=== PATIENT | male | born 1995 | race Caucasian/White ===

== ENCOUNTER 2018-07-18 09:52 | Inpatient (IN) ==
[2018-07-18] MEDS: Morphine Inj 4 MG/ML Vial IV.PUSH PRN (17:15)
--- NOTE | 2018-07-18 17:18 | P.HP ---
History of Present Illness Primary Care Physician: UNKNOWN Chief Complaint: abdominal pain History of Present Illness: patient is a 23 y/o male with no significant past medical history-other than recent admission to the hospital because of mononucleosis and tonsillitis- presented to ER with abdominal pain and GI bleed. his mother said that he was admitted to the hospital twice within the past three weeks. they were told that he might've had autoimmune hepatitis and was scheduled for liver biopsy. he was also found to have gallstone for which he was seen by a surgeon and was supposed to have cholecystectomy. his mother said that he wasn't feeling fine when he left the hospital. he's been having on and off abdominal pain for the past two-three weeks however it started to get worse yesterday.he started to have bloody emesis last night. there's no report of fever or chills at home. he denies any GI bleed in the past and never had endoscopy. Inpatient Certification: I certify that the inpatient services were ordered in accordance with Medicare regulations governing the order. This includes certification that hospital inpatient services are reasonable and necessary and in the case of services not specified as inpatient-only under 42 CFR 419.22(n), that they are appropriately provided as inpatient services in accordance to with the 2-midnight benchmark under 43 CFR 412.3(e) Estimated Total Length of Stay (Days): 2 Plans for Post Hospital Care: Home Review of Systems All other systems reviewed negative except as stated in HPI [facility] - History History Provided By: Patient, Family Member - Medical History Medical History: Medical History (Last Reviewed 07/18/18 @ 17:14 by Kwasi Arthur MD) Cytomegaloviral mononucleosis with other complication Gallstone Viral hepatitis - Surgical History Surgical History: Surgical History (Last Reviewed 07/18/18 @ 17:14 by Kwasi Arthur MD) No history of previous surgery - Family History Family History: Family History (Last Updated 07/18/18 @ 17:14 by Kwasi Arthur MD) Other No pertinent family history - Tobacco History Smoking Status: Never smoker - Alcohol History How Often Do You Have a Drink Containing Alcohol: Never - Substance Use History Substance History: No History of Abuse - Immunization History Tetanus Immunization Year if Known: 2014 Medications and Allergies Active Medications: Active Medications Diphenhydramine HCl (Benadryl Inj) 25 mg IV.PUSH Q6H PRN PRN Reason: ALLERGIC REACTION Sodium Chloride (Ns Inj) 1,000 mls @ 125 mls/hr IV.CONT .Q8H ADELINA Piperacillin/Tazobactam/Dextrose (Zosyn 3.375 Gm Premix) 50 mls @ 100 mls/hr IV.SIG Q6H ADELINA Morphine Sulfate (Morphine Inj) 2 mg IV.PUSH Q4H PRN PRN Reason: ABDOMINAL PAIN Ondansetron HCl (Zofran Inj) 4 mg IV.PUSH Q8H PRN PRN Reason: nausea Pantoprazole Sodium (Protonix Inj) 40 mg IV.PUSH Q24H ADELINA Allergies Allergy/AdvReac Type Severity Reaction Status Date / Time hydromorphone [From Dilaudid] Allergy Tachycardia Verified 07/18/18 14:53 Home Medications Medication Instructions Recorded Confirmed Type No Known Home Medications 07/18/18 07/18/18 History Exam Vital signs: Vital Signs 07/18/18 16:59 Pulse Oximetry 98 - Constitutional moderate distress - Routine HEENT Exam Eye: Present: PERRL - Routine Neck Exam Present: full ROM - Routine Respiratory Exam Present: CTA bilaterally - Routine Cardiovascular Exam Present: RRR - Routine Abdominal Exam Present: soft, tenderness (diffuse tenderness) - Routine Extremities Exam Comments: no pedal edema. - Routine Neurological Exam Present: alert, oriented X3 Caprini VTE Risk Assessment Caprini VTE Risk Assessment: No/Low Risk (score <= 1) VTE Pharmacological Exception Reason: Active bleeding Caprini Risk Assessment Model: Point Value = 1 Point Value = 2 Point Value = 3 Point Value = 5 Age 41-60 Minor surgery BMI > 25 kg/m2 Swollen legs Varicose veins or History of unexplained or recurrent spontaneous Oral contraceptives or hormone replacement Sepsis (< 1 month) Serious lung disease, including pneumonia (< 1 month) Abnormal pulmonary function Acute myocardial infarction Congestive heart failure (< 1 month) History of inflammatory bowel disease Medical patient at bed rest Age 61-74 Arthroscopic surgery Major open surgery (> 45 min) Laparoscopic surgery (> 45 min) Malignancy Confined to bed (> 72 hours) Immobilizing plaster cast Central venous access Age >= 75 History of VTE Family history of VTE Factor V Leiden Prothrombin [id number] Lupus anticoagulant Anticardiolipin antibodies Elevated serum homocysteine Heparin-induced thrombocytopenia Other congenital or acquired thrombophilia Stroke (< 1 month) Elective arthroplasty Hip, pelvis, or leg fracture Acute spinal cord injury (< 1 month) Prophylaxis Regimen: Total Risk Factor Score Risk Level Prophylaxis Regimen 0-1 Low Early ambulation 2 Moderate Order ONE of the following: *Sequential Compression Device (SCD) *Heparin 5000 units SQ BID 3-4 Higher Order ONE of the following medications: *Heparin 5000 units SQ TID *Enoxaparin/Lovenox 40 mg SQ daily (WT < 150 kg, CrCl > 30 mL/min) *Enoxaparin/Lovenox 30 mg SQ daily (WT < 150 kg, CrCl > 10-29 mL/min) *Enoxaparin/Lovenox 30 mg SQ BID (WT < 150 kg, CrCl > 30 mL/min) AND/OR *Sequential Compression Device (SCD) 5 or more Highest Order ONE of the following medications: *Heparin 5000 units SQ TID (Preferred with Epidurals) *Enoxaparin/Lovenox 40 mg SQ daily (WT < 150 kg, CrCl > 30 mL/min) *Enoxaparin/Lovenox 30 mg SQ daily (WT < 150 kg, CrCl > 10-29 mL/min) *Enoxaparin/Lovenox 30 mg SQ BID (WT < 150 kg, CrCl > 30 mL/min) AND *Sequential Compression Device (SCD) Assessment and Plan - Plan A/P - GI bleed keep NPO for now and start on IV fluid and IV Protonix- will monitor H/H and consult GI -abdominal pain with cholelithiasis/ possible cholecystitis continue with IV antibiotics and pain control- consult general surgery -elevated LFT's- will obtain the medical record from recent hospitalization- GI consulted as noted above. Discussed Condition With: ER physician, the patient and his family- RN.
--- NOTE | 2018-07-18 18:05 | P.CONGI ---
History of Present Illness Consult date: 07/18/18 Consult reason: GI bleed Chief complaint: Acute Abdomen; rule out cholecystitis History of Present Illness: This is a 23-year-old male who was admitted to the hospital here from [facility] with acute symptoms of hematemesis, nausea vomiting, and diffuse abdominal pain. Onset of symptoms initiated June 30 but have continued to worsen over the last few days. Patient is guarding his abdomen and appears to be tender all over but notes most of his sharp pain and cramping is in his lower abdomen. Patient has multiple family members here; patient is also given information and according to patient he has a 1.6 cm gallstone and the plan was to have cholecystectomy done on 07/20/2018 at the [facility]. Patient states he was also seen per Dr. Dillard gastroenterology at the [facility] but has had no EGD or colonoscopy in the past. Patient also notes some melena stools approximately 2 days ago but is now passing dark maroon blood greater than 5 times today. Patient was also treated for recent mono in June 2018. Positive family history of colon cancer grandmother in her 40s. It is also noted that grandmother had autoimmune hepatitis and cirrhosis. According to family plan was for liver biopsy during his cholecystectomy. Gastroenterology has been consulted to assist in the symptom management and the patient care of this patient. Labs are now available which show current hemoglobin 12.1, WBC count 20.6, platelet count 305, PT/INR 1, bilirubin 0.5, AST 61, ALT 181. <Olivia Mendenhall - Last Filed: 07/18/18 18:05> Review of Systems All other systems reviewed negative except as stated in HPI <Olivia Mendenhall - Last Filed: 07/18/18 18:05> PMFSH - History History Provided By: Patient, Family Member - Medical History Medical History: Medical History (Last Reviewed 07/18/18 @ 17:14 by Kwasi Arthur MD) Cytomegaloviral mononucleosis with other complication Gallstone Viral hepatitis - Surgical History Surgical History: Surgical History (Last Reviewed 07/18/18 @ 17:14 by Kwasi Arthur MD) No history of previous surgery - Family History Family History: Family History (Last Updated 07/18/18 @ 17:14 by Kwasi Arthur MD) Other No pertinent family history - Tobacco History Smoking Status: Never smoker - Alcohol History How Often Do You Have a Drink Containing Alcohol: Never - Substance Use History Substance History: No History of Abuse - Immunization History Tetanus Immunization Year if Known: 2014 <Olivia Mendenhall - Last Filed: 07/18/18 18:05> - Medical History Medical History: Medical History (Last Reviewed 07/18/18 @ 17:14 by Kwasi Arthur MD) Cytomegaloviral mononucleosis with other complication Gallstone Viral hepatitis - Surgical History Surgical History: Surgical History (Last Reviewed 07/18/18 @ 17:14 by Kwasi Arthur MD) No history of previous surgery - Family History Family History: Family History (Last Updated 07/18/18 @ 17:14 by Kwasi Arthur MD) Other No pertinent family history <Austin Sales - Last Filed: 07/18/18 20:38> Medications and Allergies Active Medications: Active Medications Diphenhydramine HCl (Benadryl Inj) 25 mg IV.PUSH Q6H PRN PRN Reason: ALLERGIC REACTION Sodium Chloride (Ns Inj) 1,000 mls @ 125 mls/hr IV.CONT .Q8H ADELINA Piperacillin/Tazobactam/Dextrose (Zosyn 3.375 Gm Premix) 50 mls @ 100 mls/hr IV.SIG Q6H ADELINA Morphine Sulfate (Morphine Inj) 2 mg IV.PUSH Q4H PRN PRN Reason: ABDOMINAL PAIN Ondansetron HCl (Zofran Inj) 4 mg IV.PUSH Q8H PRN PRN Reason: nausea Pantoprazole Sodium (Protonix Inj) 40 mg IV.PUSH Q24H ADELINA <Olivia Mendenhall - Last Filed: 07/18/18 18:05> Active Medications: Active Medications Diphenhydramine HCl (Benadryl Inj) 25 mg IV.PUSH Q6H PRN PRN Reason: ALLERGIC REACTION Sodium Chloride (Ns Inj) 1,000 mls @ 125 mls/hr IV.CONT .Q8H ADELINA Last Admin: 07/18/18 18:06 Dose: 125 mls/hr Piperacillin/Tazobactam/Dextrose (Zosyn 3.375 Gm Premix) 50 mls @ 100 mls/hr IV.SIG Q6H ADELINA Morphine Sulfate (Morphine Inj) 2 mg IV.PUSH Q4H PRN PRN Reason: ABDOMINAL PAIN Last Admin: 07/18/18 17:15 Dose: 2 mg Ondansetron HCl (Zofran Inj) 4 mg IV.PUSH Q8H PRN PRN Reason: nausea Pantoprazole Sodium (Protonix Inj) 40 mg IV.PUSH Q24H [facility] Last Admin: 07/18/18 18:06 Dose: 40 mg <Austin Sales E - Last Filed: 07/18/18 20:38> Allergies Allergy/AdvReac Type Severity Reaction Status Date / Time hydromorphone [From Dilaudid] Allergy Tachycardia Verified 07/18/18 14:53 Home Medications Medication Instructions Recorded Confirmed Type No Known Home Medications 07/18/18 07/18/18 History Exam Vital signs: Vital Signs 07/18/18 16:59 Pulse Oximetry 98 - Constitutional moderate distress, average body habitus - Routine HEENT Exam Head: Present: normocephalic, atraumatic ENT: Present: mucous membranes moist - Routine Neck Exam Present: supple - Routine Respiratory Exam Present: accessory muscle use (No obvious shortness of breath oxygen per nasal cannula) - Routine Cardiovascular Exam Present: S1, S2 (taut, ) - Routine Abdominal Exam Present: tenderness (Generalized but more so in the lower abdomen with cramping and sharp pains off and on), distended, guarding (Mild) - Routine Skin Exam Present: intact - Routine Neurological Exam Present: alert (Drowsy from pain meds but is answering simple questions) <Olivia Mendenhall - Last Filed: 07/18/18 18:05> Vital signs: Vital Signs 07/18/18 16:59 Pulse Oximetry 98 <Austin Sales E - Last Filed: 07/18/18 20:38> Results - Labs CBC & Chem 7: 07/18/18 19:41 Labs: Laboratory Results - last 24 hr 07/18/18 19:41 Hgb 10.9 L Hct 33.3 L <Austin Sales E - Last Filed: 07/18/18 20:38> Assessment and Plan - Plan Acute hematemesis, symptoms of nausea vomiting and diffuse abdominal pain with special attention to the lower abdomen area Melena stools alternating with Maroon colored dark stools History of grandmother with colon cancer as well as autoimmune hepatitis and cirrhosis Transaminitis acute symptoms of hematemesis, nausea vomiting, and diffuse abdominal pain. Onset of symptoms initiated June 30 but have continued to worsen over the last 3-4 days. Patient is guarding his abdomen and appears to be tender all over but notes most of his sharp pain and cramping is in his lower abdomen. Patient has multiple family members here; patient is also given information and according to patient he has a 1.6 cm gallstone and the plan was to have cholecystectomy done on 07/20/2018 at the [facility]. Patient states he was also seen per Dr. Dillard gastroenterology at the [facility] but has had no EGD or colonoscopy in the past. Patient also notes some melena stools approximately 2 days ago but is now passing dark maroon blood greater than 5 times today. Patient was also treated for recent mono in June 2018. Positive family history of colon cancer grandmother in her 40s. It is also noted that grandmother had autoimmune hepatitis and cirrhosis. According to family plan was for liver biopsy during his cholecystectomy. Gastroenterology has been consulted to assist in the symptom management and the patient care of this patient. Labs are now available which show current hemoglobin 12.1, WBC count 20.6, platelet count 305, PT/INR 1, bilirubin 0.5, AST 61, ALT 181. Dependent on patient's stability he will need possible EGD and colonoscopy. Plan Diet n.p.o. for now Aggressive IV fluids Monitor labs and transfuse if needed Monitor intake and output as well as hematemesis and bloody stools Maintain n.p.o. at midnight, consider EGD initially for his hematemesis PPI Pain management per attending Jero as needed Further recommendations to follow, supportive care Patient was seen per myself and Dr. Sales, note was written on his behalf <Olivia Mendenhall - Last Filed: 07/18/18 18:05> - Plan Patient seen and examined Agree with above Continue with current supportive care Monitor labs EGD tomorrow <Austin Sales - Last Filed: 07/18/18 20:38>
[2018-07-18] MEDS: Sod Chloride 0.9% Inj 1,000 ML IV.CONT SCH ×2 (18:06→22:59)
[2018-07-18] MEDS: Pantoprazole Inj 40 MG Vial IV.PUSH SCH (18:06)
[2018-07-18 19:53] LABS: Hematocrit 33.3 % (39.0-51.0); Hemoglobin 10.9 gm/dL (13.0-17.0)
[2018-07-18 21:51] LABS: Baso # (Auto) 0.1 th/mm3 (0.0-0.2); Baso % (Auto) 0.5 % (0.0-2.0); Eos # (Auto) 0.2 th/mm3 (0.0-0.4); Eos % (Auto) 1.3 % (0.0-4.0); Hematocrit 32.9 % (39.0-51.0); Hemoglobin 10.9 gm/dL (13.0-17.0); Lymph # (Auto) 3.2 th/mm3 (1.0-4.8); Lymph % (Auto) 19.9 % (9.0-44.0); Mean Corpuscular HGB Conc 33.2 % (32.0-36.0); Mean Corpuscular Hemoglobin 27.1 pg (27.0-34.0); Mean Corpuscular Volume 81.5 fL (80.0-100.0); Mean Platelet Volume 8.9 fL (7.0-11.0); Mono # (Auto) 0.9 th/mm3 (0.0-0.9); Mono % (Auto) 5.8 % (0.0-8.0); Neut # (Auto) 11.8 th/mm3 (1.8-7.7); Neut % (Auto) 72.5 % (16.0-70.0); Platelet Count 266 th/mm3 (150-450); Red Blood Count 4.04 mil/mm3 (4.50-5.90); Red Cell Distribution Width 14.2 % (11.6-17.2); White Blood Count 16.2 th/mm3 (4.0-11.0)
[2018-07-18 22:16] LABS: % Iron Saturation 19.2 % (20-50); Thyroid Stimulating Hormone 1.61 uIU/mL (0.358-3.740)
[2018-07-18] MEDS: Piperacil/Tazo 3.375 GM Premix 50 ML IV.SIG SCH (22:58)
[2018-07-18 23:49] LABS: Hepatitis A IgM Antibody Nonreactive (Nonreactive)
[2018-07-18 23:50] LABS: Hepatitits B Surface Antigen Nonreactive (Nonreactive)
[2018-07-19] MEDS: Piperacil/Tazo 3.375 GM Premix 50 ML IV.SIG SCH ×4 (02:31→20:19)
[2018-07-19 06:17] LABS: Hematocrit 27.7 % (39.0-51.0); Hemoglobin 9.2 gm/dL (13.0-17.0); Mean Corpuscular HGB Conc 33.4 % (32.0-36.0); Mean Corpuscular Hemoglobin 27.3 pg (27.0-34.0); Mean Corpuscular Volume 81.8 fL (80.0-100.0); Mean Platelet Volume 8.7 fL (7.0-11.0); Platelet Count 213 th/mm3 (150-450); Red Blood Count 3.38 mil/mm3 (4.50-5.90); Red Cell Distribution Width 14.3 % (11.6-17.2); White Blood Count 10.9 th/mm3 (4.0-11.0)
[2018-07-19 06:42] LABS: Alanine Aminotransferase 118 U/L (12-78); Albumin 2.9 g/dL (3.4-5.0); Anion Gap 9 meq/L (5-15); Aspartate Aminotransferase 38 U/L (15-37); Blood Urea Nitrogen 11 mg/dL (7-18); Calcium 7.8 mg/dL (8.5-10.1); Carbon Dioxide 24.4 meq/L (21.0-32.0); Chloride 112 meq/L (98-107); Glomerular Filtration Rate 85 mL/min (>89); Glucose,Random 81 mg/dL (74-106); Potassium 3.5 meq/L (3.5-5.1); Sodium 145 meq/L (136-145)
[2018-07-19 06:48] LABS: Alkaline Phosphatase 59 U/L (45-117); Total Protein 6.1 g/dL (6.4-8.2)
[2018-07-19] MEDS ORDERED: Chlorhexidine Gluconate 2% 1 Pack (2 Cloths) TOPICAL ONE (07:29)
[2018-07-19] MEDS ORDERED: Sodium Chlor 0.9% Inj 500 ML IV.SIG SCH (08:00)
[2018-07-19] MEDS: Sod Chloride 0.9% Inj 1,000 ML IV.CONT SCH ×3 (08:02→22:35)
--- NOTE | 2018-07-19 08:20 | P.PN ---
Subjective Interval history: This is a pleasant 23 y/o male who had recent admission due to mononucleosis and tonsillitis- presented to ER with abdominal pain and GI bleed. his mother said that he was admitted to the hospital twice within the past three weeks. they were told that he might've had autoimmune hepatitis and was scheduled for liver biopsy. he was also found to have gallstone for which he was seen by a surgeon and was supposed to have cholecystectomy. had Hematemesis status post EGD found LA Class A Esophagitis, erythematous gastritis in gastric antrum, recommended to follow biopsy, anti reflux regimen, PPIs, discussed with Doctor Flaco does not consider Colonoscopy his mother wants to know why and at this time GI specialist talking with relatives. Probable Cholecystectomy as per General surgery. Physical Exam Vital signs: Vital Signs 07/18/18 16:59 07/18/18 20:00 07/19/18 00:00 Temperature 98.5 F 98.3 F Pulse Rate 116 H 105 H Respiratory Rate 20 20 Blood Pressure 130/59 L 124/56 L Pulse Oximetry 98 97 98 Intake & Output 07/18/18 07/19/18 07/19/18 18:59 06:59 18:59 Intake Total 1100 / 1100 1000 / 1000 Output Total 200 / 200 750 / 750 Balance -200 / -200 350 / 350 1000 / 1000 Weight 132.3 kg Intake: IV 1100 / 1100 1000 / 1000 NS Inj 1,000 ML @ 125 mls/hr IV 1000 / 1000 1000 / 1000 .CONT .Q8H ADELINA Rx#:[id number] Zosyn 3.375 GM Premix 50 ML @ 100 / 100 100 mls/hr IV.SIG Q6H ADELINA Rx#: [id number] Output: Urine 200 / 200 Stool 200 / 200 550 / 550 Other: Date of Last Bowel Movement 07/18/18 07/19/18 07/19/18 # Bowel Movements 2 4 Weight On Admission 132.3 kg Narrative: GENERAL: This is a well-nourished, well-developed patient, in no apparent distress. CARDIOVASCULAR: Regular rate and rhythm without murmurs, gallops, or rubs. RESPIRATORY: Clear to auscultation. Breath sounds equal bilaterally. No wheezes , rales, or rhonchi. GASTROINTESTINAL: Abdomen soft, non-tender, nondistended. Normal active bowel sounds MUSCULOSKELETAL: Extremities without clubbing, cyanosis, or edema. NEURO: Alert & Oriented x4 to person, place, time, situation. Moves all ext x4 Results - Labs CBC & Chem 7: 07/19/18 03:55 07/19/18 03:55 Laboratory Results - last 24 hr 07/18/18 07/18/18 07/18/18 19:41 19:41 21:35 WBC 16.2 H RBC 4.04 L Hgb 10.9 L 10.9 L Hct 33.3 L 32.9 L MCV 81.5 MCH 27.1 MCHC 33.2 RDW 14.2 Plt Count 266 MPV 8.9 Neut % (Auto) 72.5 H Lymph % (Auto) 19.9 [place] % (Auto) 5.8 Eos % (Auto) 1.3 Baso % (Auto) 0.5 Neut # (Auto) 11.8 H Lymph # (Auto) 3.2 [place] # (Auto) 0.9 Eos # (Auto) 0.2 Baso # (Auto) 0.1 WBC Differential . Differential Comment Auto diff final Sodium Potassium Chloride Carbon Dioxide Anion Gap BUN Creatinine Estimated GFR Random Glucose Calcium Iron 66 TIBC 343 % Saturation 19.2 L Total Bilirubin AST ALT Alkaline Phosphatase Total Protein Albumin TSH 1.610 Hepatitis A IgM Ab Hep Bs Antigen Hep B Core IgM Ab Hep C IgG Ab 07/18/18 07/19/18 07/19/18 21:35 03:55 03:55 WBC 10.9 RBC 3.38 L Hgb 9.2 L Hct 27.7 L MCV 81.8 MCH 27.3 MCHC 33.4 RDW 14.3 Plt Count 213 MPV 8.7 Neut % (Auto) Lymph % (Auto) [place] % (Auto) Eos % (Auto) Baso % (Auto) Neut # (Auto) Lymph # (Auto) [place] # (Auto) Eos # (Auto) Baso # (Auto) WBC Differential Differential Comment Sodium 145 Potassium 3.5 Chloride 112 H Carbon Dioxide 24.4 Anion Gap 9 BUN 11 Creatinine 1.09 Estimated GFR 85 L Random Glucose 81 Calcium 7.8 L Iron TIBC % Saturation Total Bilirubin 0.7 AST 38 H ALT 118 H Alkaline Phosphatase 59 Total Protein 6.1 L D Albumin 2.9 L D TSH Hepatitis A IgM Ab Nonreactive Hep Bs Antigen Nonreactive Hep B Core IgM Ab Nonreactive Hep C IgG Ab Nonreactive Assessment and Plan - Plan - GI bleed/Hematemesis patient to continue supportive care with IV fluids and PPIs, status post EGD found LA Class A Esophagitis, erythematous gastritis in gastric antrum, recommended to follow biopsy, anti reflux regimen, PPIs, discussed with Doctor Flaco does not consider Colonoscopy his mother wants to know why and at this time GI specialist talking with relatives. Probable Cholecystectomy as per General surgery. -abdominal pain with cholelithiasis/ possible cholecystitis continue with IV antibiotics and pain control- consult general surgery -elevated LFT's- will obtain the medical record from recent hospitalization -history of Mononucleosis his mother asking for ID specialist in the case Doctor Flaco agree with consult. Code Status: Full code. Discussed Condition With: patient and Nurse and GI specialist Doctor Flaco. Discharge Planning: once cleared by specialists.
[2018-07-19] MEDS ORDERED: Lidocaine PF 1% Inj 5 ML Syringe OTHER ONE (10:00)
--- NOTE | 2018-07-19 10:14 | GIPROC ---
[facility] [address] [facility]. [facility], [address] EGD PROCEDURE REPORT EXAM DATE: 07/19/2018 PATIENT NAME: Joseph Pacheco MR #: [id number] BIRTHDATE: 1995 ATTENDING: Aby Sam MD ORDER #: [id number] [employer] DEVELOPER: Moira Roberts and Radha Genao STATUS: inpatient INDICATIONS: The patient is a 23 yr old male here for an EGD due to epigastric abdominal pain and dyspepsia PROCEDURE PERFORMED: EGD w/ biopsy MEDICATIONS: None and Per Anesthesia. TOPICAL ANESTHETIC: CONSENT: The patient understands the risks and benefits of the procedure and understands that these risks include, but are not limited to: sedation, allergic reaction, infection, perforation and/or bleeding. Alternative means of evaluation and treatment include, among others: physical exam, x-rays, and/or surgical intervention. The patient elects to proceed with this endoscopic procedure. medical equipment was checked for proper function. Hand hygiene and appropriate measures for infection prevention was taken. After the risks, benefits and alternatives of the procedure were thoroughly explained, Informed consent was verified, confirmed and timeout was successfully executed by the treatment team. The patient was anesthetized with topical anesthesia and the [id number] endoscope was introduced through the mouth and advanced to the second portion of the duodenum. Retroflexed views revealed a hiatal hernia The gastroscope was then slowly withdrawn and removed. ESOPHAGUS: There was LA Class A esophagitis noted. A biopsy was performed using cold forceps. Sample sent for histology. STOMACH: There was erythematous moderate gastritis in the gastric antrum. A biopsy was performed using cold forceps. Sample sent for histology. DUODENUM: The duodenal mucosa appeared normal in the bulb and second portion of the duodenum. ADVERSE EVENTS: There were no complications. IMPRESSIONS: 1. There was LA Class A esophagitis noted; biopsy was performed 2. There was erythematous gastritis in the gastric antrum; biopsy was performed 3. Normal duodenal mucosa in the bulb and second portion of the duodenum 4. Retroflexed views revealed a hiatal hernia RECOMMENDATIONS: 1. Await biopsy results. Biopsy results will not be ready for 7-10 days. If you don't hear from us in two weeks, call our office for biopsy results. 2. Anti-reflux regimen 3. Continue PPI 4. Avoid NSAIDS PATIENT CONDITION: stable DISPOSITION: Inpatient REPEAT EXAM: Return 1 year EGD pending biopsy results Aby Sam MD eSigned: Aby Sam MD 07/19/2018 10:13 AM cc: PATIENT NAME: Joseph Pacheco MR#: [id number]
[2018-07-19] MEDS: Acetaminophen 325 MG Tablet PO PRN (12:51)
--- NOTE | 2018-07-19 14:23 | P.PNVS ---
Subjective Subjective/Hospital Course: 07/19/[address] Wilner Camacho who will take over the general surgery care We will sign off Alyssa Chance Objective Vital Signs / I&O: Vital Signs 07/18/18 16:59 07/18/18 20:00 07/19/18 00:00 Temperature 98.5 F 98.3 F Pulse Rate 116 H 105 H Respiratory Rate 20 20 Blood Pressure 130/59 L 124/56 L Pulse Oximetry 98 97 98 07/19/18 08:00 07/19/18 12:00 Temperature 98.3 F 98.6 F Pulse Rate 115 H 101 H Respiratory Rate 18 18 Blood Pressure 125/61 132/60 Pulse Oximetry 96 99 Intake & Output 07/18/18 07/19/18 07/19/18 18:59 06:59 18:59 Intake Total 1100 / 1100 1150 / 1150 Output Total 200 / 200 750 / 750 Balance -200 / -200 350 / 350 1150 / 1150 Weight 132.3 kg Intake: IV 1100 / 1100 1050 / 1050 NS Inj 1,000 ML @ 125 mls/hr IV 1000 / 1000 1000 / 1000 .CONT .Q8H [facility] Rx#:[id number] Zosyn 3.375 GM Premix 50 ML @ 100 / 100 50 / 50 100 mls/hr IV.SIG Q6H ADELINA Rx#: [id number] Anesthesia Amount 100 / 100 Output: Urine 200 / 200 Stool 200 / 200 550 / 550 Other: Date of Last Bowel Movement 07/18/18 07/19/18 07/19/18 # Bowel Movements 2 4 Weight On Admission 132.3 kg Laboratory Results - last 24 hr 07/18/18 07/18/18 07/18/18 19:41 19:41 21:35 WBC 16.2 H RBC 4.04 L Hgb 10.9 L 10.9 L Hct 33.3 L 32.9 L MCV 81.5 MCH 27.1 MCHC 33.2 RDW 14.2 Plt Count 266 MPV 8.9 Neut % (Auto) 72.5 H Lymph % (Auto) 19.9 [place] % (Auto) 5.8 Eos % (Auto) 1.3 Baso % (Auto) 0.5 Neut # (Auto) 11.8 H Lymph # (Auto) 3.2 [place] # (Auto) 0.9 Eos # (Auto) 0.2 Baso # (Auto) 0.1 WBC Differential . Differential Comment Auto diff final Sodium Potassium Chloride Carbon Dioxide Anion Gap BUN Creatinine Estimated GFR Random Glucose Calcium Iron 66 TIBC 343 % Saturation 19.2 L Total Bilirubin AST ALT Alkaline Phosphatase Total Protein Albumin TSH 1.610 Hepatitis A IgM Ab Hep Bs Antigen Hep B Core IgM Ab Hep C IgG Ab 07/18/18 07/19/18 07/19/18 21:35 03:55 03:55 WBC 10.9 RBC 3.38 L Hgb 9.2 L Hct 27.7 L MCV 81.8 MCH 27.3 MCHC 33.4 RDW 14.3 Plt Count 213 MPV 8.7 Neut % (Auto) Lymph % (Auto) [place] % (Auto) Eos % (Auto) Baso % (Auto) Neut # (Auto) Lymph # (Auto) [place] # (Auto) Eos # (Auto) Baso # (Auto) WBC Differential Differential Comment Sodium 145 Potassium 3.5 Chloride 112 H Carbon Dioxide 24.4 Anion Gap 9 BUN 11 Creatinine 1.09 Estimated GFR 85 L Random Glucose 81 Calcium 7.8 L Iron TIBC % Saturation Total Bilirubin 0.7 AST 38 H ALT 118 H Alkaline Phosphatase 59 Total Protein 6.1 L D Albumin 2.9 L D TSH Hepatitis A IgM Ab Nonreactive Hep Bs Antigen Nonreactive Hep B Core IgM Ab Nonreactive Hep C IgG Ab Nonreactive
[2018-07-19] MEDS ORDERED: PEG 3350/E-Lyte Soln 4000 ML Bottle PO ONE (15:00)
[2018-07-19] MEDS: Pantoprazole Inj 40 MG Vial IV.PUSH SCH (15:12)
[2018-07-19] MEDS: Morphine Inj 4 MG/ML Vial IV.PUSH PRN (15:28)
--- NOTE | 2018-07-19 17:09 | P.CONGS ---
[facility] Gen Surgery Consult Note Consult date: 07/19/18 Reason for consult: gallstones Narrative: CONSULTATION NOTE FOR SURGICAL ATTENDING, DR. RISHABH CAMACHO Patient recently admitted to the hospital severe right upper quadrant pain nausea vomiting began vomiting blood at radiologic imaging consistent with gallstones clinical exam consistent with biliary colic. Underwent a EGD today showing gastritis surgery was consulted for timing of cholecystectomy Patient has been into the 2 other hospitals I had the opportunity to review some of the records from the last admission where he had what appeared to be a bout of gallstone pancreatitis. At the same time according to the mother apparently had severe tonsillitis treated with antibiotics. Apparently at the other hospital he was told he had mononucleosis as well Surgery was consulted for consideration of cholecystectomy Review of Systems All other systems reviewed negative except as stated in HPI Constitutional: Reports anorexia, Reports weight loss Gastrointestinal: Reports abdominal pain, Reports bloating, Reports bright, red blood in stools, Reports change in bowel habits, Reports heartburn PMFSH - History History Provided By: Family Member - Medical History Medical History: Medical History (Last Reviewed 07/19/18 @ 17:02 by Rishabh Camacho MD) Cytomegaloviral mononucleosis with other complication Gallstone Viral hepatitis - Surgical History Surgical History: Surgical History (Last Reviewed 07/19/18 @ 17:02 by Rishabh Camacho MD) No history of previous surgery - Family History Family History: Family History (Last Reviewed 07/19/18 @ 17:02 by Rishabh Camacho MD) Other No pertinent family history - Social History I have reviewed the patient's Social History: Yes - Tobacco History Second Hand Smoke Exposure: No Tobacco Use In Past 30 Days: No Smoking Status: Former smoker Tobacco Type: Cigarettes - Alcohol History How Often Do You Have a Drink Containing Alcohol: 2 to 3 times a week - Substance Use History Substance History: No History of Abuse - Immunization History Tetanus Immunization Year if Known: 2014 Medications and Allergies Active Medications: Active Medications Acetaminophen (Tylenol) 650 mg PO Q6H PRN PRN Reason: HEADACHE Last Admin: 07/19/18 12:51 Dose: 650 mg Diphenhydramine HCl (Benadryl Inj) 25 mg IV.PUSH Q6H PRN PRN Reason: ALLERGIC REACTION Last Admin: 07/18/18 22:48 Dose: 25 mg Sodium Chloride (Ns Inj) 1,000 mls @ 125 mls/hr IV.CONT .Q8H [facility] Last Admin: 07/19/18 14:15 Dose: 125 mls/hr Piperacillin/Tazobactam/Dextrose (Zosyn 3.375 Gm Premix) 50 mls @ 100 mls/hr IV.SIG Q6H [facility] Last Infusion: 07/19/18 13:43 Dose: Infused Lactated Ringer's (Lr 1000 Ml Inj) 1,000 mls @ 30 mls/hr IV.SIG .Q24H [facility] Stop: 07/20/18 07:29 Last Admin: 07/19/18 08:02 Dose: 30 mls/hr Sodium Chloride (Ns Inj) 500 mls @ 30 mls/hr IV.SIG .Q10H [facility] Last Admin: 07/19/18 08:03 Dose: Not Given Morphine Sulfate (Morphine Inj) 2 mg IV.PUSH Q4H PRN PRN Reason: ABDOMINAL PAIN Last Admin: 07/19/18 15:28 Dose: 2 mg Ondansetron HCl (Zofran Inj) 4 mg IV.PUSH Q8H PRN PRN Reason: nausea Pantoprazole Sodium (Protonix Inj) 40 mg IV.PUSH Q24H [facility] Last Admin: 07/19/18 15:12 Dose: 40 mg Allergies Allergy/AdvReac Type Severity Reaction Status Date / Time hydromorphone [From Dilaudid] Allergy Tachycardia Verified 07/18/18 14:53 Home Medications Medication Instructions Recorded Confirmed Type No Known Home Medications 07/18/18 07/19/18 History Exam Vital signs: Vital Signs 07/18/18 20:00 07/19/18 00:00 07/19/18 08:00 Temperature 98.5 F 98.3 F 98.3 F Pulse Rate 116 H 105 H 115 H Respiratory Rate 20 20 18 Blood Pressure 130/59 L 124/56 L 125/61 Pulse Oximetry 97 98 96 07/19/18 12:00 Temperature 98.6 F Pulse Rate 101 H Respiratory Rate 18 Blood Pressure 132/60 Pulse Oximetry 99 Intake & Output 07/18/18 07/19/18 07/19/18 18:59 06:59 18:59 Intake Total 1100 / 1100 1150 / 1150 Output Total 200 / 200 750 / 750 Balance -200 / -200 350 / 350 1150 / 1150 Weight 132.3 kg Intake: IV 1100 / 1100 1050 / 1050 NS Inj 1,000 ML @ 125 mls/hr IV 1000 / 1000 1000 / 1000 .CONT .Q8H [facility] Rx#:[id number] Zosyn 3.375 GM Premix 50 ML @ 100 / 100 50 / 50 100 mls/hr IV.SIG Q6H [facility] Rx#: [id number] Anesthesia Amount 100 / 100 Output: Urine 200 / 200 Stool 200 / 200 550 / 550 Other: Date of Last Bowel Movement 07/18/18 07/19/18 07/19/18 # Bowel Movements 2 4 Weight On Admission 132.3 kg Narrative: Patient up in the room ambulating had just come from the restroom Pupils equal round reactive Neck is supple I do not feel any lymphadenopathy chest is fairly clear heart regular rate he has a positive Michelle sign with severe right upper quadrant pain with palpation mild midepigastric discomfort Moves all extremities well numerous tattoos Neurologic alert and oriented Results - Labs 07/19/18 03:55 07/19/18 03:55 Laboratory Results - last 24 hr 07/18/18 07/18/18 07/18/18 19:41 19:41 21:35 WBC 16.2 H RBC 4.04 L Hgb 10.9 L 10.9 L Hct 33.3 L 32.9 L MCV 81.5 MCH 27.1 MCHC 33.2 RDW 14.2 Plt Count 266 MPV 8.9 Neut % (Auto) 72.5 H Lymph % (Auto) 19.9 [place] % (Auto) 5.8 Eos % (Auto) 1.3 Baso % (Auto) 0.5 Neut # (Auto) 11.8 H Lymph # (Auto) 3.2 [place] # (Auto) 0.9 Eos # (Auto) 0.2 Baso # (Auto) 0.1 WBC Differential . Differential Comment Auto diff final Sodium Potassium Chloride Carbon Dioxide Anion Gap BUN Creatinine Estimated GFR Random Glucose Calcium Iron 66 TIBC 343 % Saturation 19.2 L Total Bilirubin AST ALT Alkaline Phosphatase Total Protein Albumin TSH 1.610 Hepatitis A IgM Ab Hep Bs Antigen Hep B Core IgM Ab Hep C IgG Ab 07/18/18 07/19/18 07/19/18 21:35 03:55 03:55 WBC 10.9 RBC 3.38 L Hgb 9.2 L Hct 27.7 L MCV 81.8 MCH 27.3 MCHC 33.4 RDW 14.3 Plt Count 213 MPV 8.7 Neut % (Auto) Lymph % (Auto) [place] % (Auto) Eos % (Auto) Baso % (Auto) Neut # (Auto) Lymph # (Auto) [place] # (Auto) Eos # (Auto) Baso # (Auto) WBC Differential Differential Comment Sodium 145 Potassium 3.5 Chloride 112 H Carbon Dioxide 24.4 Anion Gap 9 BUN 11 Creatinine 1.09 Estimated GFR 85 L Random Glucose 81 Calcium 7.8 L Iron TIBC % Saturation Total Bilirubin 0.7 AST 38 H ALT 118 H Alkaline Phosphatase 59 Total Protein 6.1 L D Albumin 2.9 L D TSH Hepatitis A IgM Ab Nonreactive Hep Bs Antigen Nonreactive Hep B Core IgM Ab Nonreactive Hep C IgG Ab Nonreactive - Imaging Imaging: Patient had ultrasound which showed a gallstone and thickening gallbladder wall 1. Cholelithiasis, gallbladder wall thickening and pericholecystic fluid noted. Negative sonographic Michelle's sign. The possibility of cholecystitis is difficult to exclude. 2. Hepatic steatosis and borderline hepatomegaly. EGD shows gastritis IMPRESSIONS: 1. There was LA Class A esophagitis noted; biopsy was performed 2. There was erythematous gastritis in the gastric antrum; biopsy was performed 3. Normal duodenal mucosa in the bulb and second portion of the duodenum 4. Retroflexed views revealed a hiatal hernia Patient had a CT scan which was reviewed FINDINGS: Lung bases are clear. Osseous structures are intact. No pleural or pericardial effusions are seen. Diffuse decreased density of the liver characteristic of hepatic steatosis. Spleen, pancreas, adrenals, gallbladder, kidneys unremarkable. Urinary bladder and prostate are unremarkable. There is no evidence for bowel obstruction, free fluid or free air. Appendix is normal. No adenopathy or aneurysm. Liver is enlarged at 21 cm in cephalocaudal dimension. CONCLUSION: 1. Hepatomegaly and hepatic steatosis. CT scan - abdomen: report reviewed, image reviewed CT scan - pelvis: image reviewed US - abdomen: image reviewed Assessment and Plan - Assessment (1) RUQ abdominal pain Code(s): R10.11 - Right upper quadrant pain Status: Acute (2) Gallstones and inflammation of gallbladder without obstruction Code(s): K80.00 - Calculus of gallbladder with acute cholecystitis without obstruction Status: Acute (3) Gastritis Code(s): K29.70 - Gastritis, unspecified, without bleeding Status: Acute Qualifiers: Gastritis type: superficial Chronicity: acute Gastritis bleeding: with bleeding Qualified Code(s): K29.01 - Acute gastritis with bleeding (4) Anemia Code(s): D64.9 - Anemia, unspecified Status: Suspected Onset Date: ~ (5) Mononucleosis syndrome Code(s): B27.90 - Infectious mononucleosis, unspecified without complication Status: Acute - Plan 23-year-old old gentleman who has had 3 different hospitalizations. He has had problems with tonsillitis possible mononucleosis with gallstone and possibly one episode of gallstone pancreatitis. Recently admitted was found to have gastritis and on a new ultrasound gallstones with findings of inflammation. I had a discussion with the mother about proceeding with a laparoscopic cholecystectomy the timing to be arranged I also discussed with Dr. roberts the data report analyst he is planning to do a colonoscopy tomorrow because of the blood. I have tentatively rescheduled him the following day on Thursday depending on the colonoscopy results - Attending Attestation CONSULTATION NOTE FOR SURGICAL ATTENDING, DR. RISHABH CAMACHO I attest that I had a [id number] encounter with the patient on the same day, and personally performed and documented my assessment and findings in the medical record. The following services were provided during this hospital visit: Chart data review, vital sign assessments/reviewing monitor data Review of consultations notes if present. Medication orders/review and/or management Ordering and/or reviewing lab tests Ordering and/or interpreting/reviewing x-rays and/or diagnostic studies Care of the patient and discussion of the patient with the care team Documentation time To help prompt me to consider important information that might be impacting today's encounter and assessment, Information from prior notes written by myself or my colleagues may have been "brought forward/copy and pasted" into today's note.
--- NOTE | 2018-07-19 18:27 | P.PNID ---
Subjective Remarks: ID CONSULT DICTATED. Patient seen and examined. Patent treated recently for tonsillitis and pharyngitis. Infectious mononucleosis diagnosed during recent hospitalization. Recommendation: No need to give treatment for infectious mono at this time. Expect the illness to run it course over weeks to months. Okay to do cholecystectomy from ID standpoint. I will sign off. Discussed with patient's mom. Allergies/Adverse Reactions: Allergies hydromorphone [From Dilaudid] Allergy (Verified 07/18/18 14:53) Tachycardia Objective Vital Signs 07/18/18 20:00 07/19/18 00:00 07/19/18 08:00 Temperature 98.5 F 98.3 F 98.3 F Pulse Rate 116 H 105 H 115 H Respiratory Rate 20 20 18 Blood Pressure 130/59 L 124/56 L 125/61 Pulse Oximetry 97 98 96 07/19/18 12:00 07/19/18 16:00 Temperature 98.6 F 98.3 F Pulse Rate 101 H 107 H Respiratory Rate 18 16 Blood Pressure 132/60 120/58 L Pulse Oximetry 99 97 Intake & Output 07/18/18 07/19/18 07/19/18 18:59 06:59 18:59 Intake Total 1100 / 1100 1949 / 1950 Output Total 200 / 200 750 / 750 Balance -200 / -200 350 / 350 1947 / 1947 Weight 132.3 kg Intake: IV 1100 / 1100 1050 / 1050 NS Inj 1,000 ML @ 125 mls/hr IV 1000 / 1000 1000 / 1000 .CONT .Q8H [facility] Rx#:[id number] Zosyn 3.375 GM Premix 50 ML @ 100 / 100 50 / 50 100 mls/hr IV.SIG Q6H [facility] Rx#: [id number] Oral 800 / 800 Anesthesia Amount 100 / 100 Output: Urine 200 / 200 Stool 200 / 200 550 / 550 Other: # Voids 4 Date of Last Bowel Movement 07/18/18 07/19/18 07/19/18 # Bowel Movements 2 4 Weight On Admission 132.3 kg Lab - Hematology Results 07/18/18 07/18/18 07/19/18 19:41 19:41 03:55 WBC 16.2 H 10.9 RBC 4.04 L 3.38 L Hgb 10.9 L 10.9 L 9.2 L Hct 33.3 L 32.9 L 27.7 L MCV 81.5 81.8 MCH 27.1 27.3 MCHC 33.2 33.4 RDW 14.2 14.3 Plt Count 266 213 MPV 8.9 8.7 Neut % (Auto) 72.5 H Lymph % (Auto) 19.9 [place] % (Auto) 5.8 Eos % (Auto) 1.3 Baso % (Auto) 0.5 Neut # (Auto) 11.8 H Lymph # (Auto) 3.2 [place] # (Auto) 0.9 Eos # (Auto) 0.2 Baso # (Auto) 0.1 WBC Differential . Differential Comment Auto diff final Lab - Chemistry Results 07/18/18 07/19/18 21:35 03:55 Sodium 145 Potassium 3.5 Chloride 112 H Carbon Dioxide 24.4 Anion Gap 9 BUN 11 Creatinine 1.09 Estimated GFR 85 L Random Glucose 81 Calcium 7.8 L Iron 66 TIBC 343 % Saturation 19.2 L Total Bilirubin 0.7 AST 38 H ALT 118 H Alkaline Phosphatase 59 Total Protein 6.1 L D Albumin 2.9 L D TSH 1.610
--- NOTE | 2018-07-19 21:31 | MB ---
cc: Hussein Castro MD, Guillermo MD DATE: 07/19/2018 REQUESTING PHYSICIAN: Rich Richmond MD REASON FOR CONSULTATION: Mononucleosis. HISTORY OF PRESENT ILLNESS: This is a 23-year-old male who was recently hospitalized and treated for infectious mononucleosis. The patient developed severe pharyngitis/tonsillitis. He received steroids and antibiotic treatment and he was discharged from the hospital on 07/10/2018. He was noted to have a gallstone and upon further review of the abdominal tests, he was due to be scheduled to have a cholecystectomy because of gallstone. However, the day prior to admission, he developed abdominal pain which became worse and he was also having GI bleeding, upper and lower. He was admitted to the hospital and he has undergone an upper endoscopy. There is a plan to do a colonoscopy as well. The patient states that he feels better. He was able to eat a sandwich today without difficulty. He has no sore throat. He denies nausea. He is afebrile. The patient was seen by general surgery. A discussion was made with his mother about proceeding with a laparoscopic cholecystectomy. He is tentatively scheduled for Thursday. He is due to undergo a colonoscopy tomorrow. 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 His white blood cell count on admission yesterday was 16.2 and today it is 10.9. Hepatitis B, C and A serologies are negative. PARDEEP screen is negative. The upper endoscopy revealed class A esophagitis and also erythematous gastritis in the gastric antrum and also a hiatal hernia. PAST MEDICAL HISTORY: No previous medical illnesses. ALLERGIES: HYDROMORPHONE. MEDICATIONS: 1. Piperacillin/tazobactam. 2. Protonix. 3. Morphine sulfate. 4. Benadryl. SOCIAL HISTORY: No tobacco. Positive alcohol use. No illicit drugs. FAMILY HISTORY: Noncontributory. REVIEW OF SYSTEMS: All systems have been reviewed and are negative except for features mentioned in the history of present illness. PHYSICAL EXAMINATION: GENERAL: This is a well-developed male who is in no acute distress. He is awake, alert and oriented. VITAL SIGNS: Temperature 98.3, BP 120/58, respirations 16, heart rate 107. HEENT: Head is atraumatic. Extraocular movements grossly intact. Pupils reactive to light. No icterus. Oropharynx with moist mucosa. No visible lesions. No thrush. The tonsils reveal no swelling. NECK: Supple without adenopathy. LUNGS: Clear breath sounds bilaterally. HEART: Regular S1 and S2 without murmurs, rubs or gallops. ABDOMEN: Slightly obese, soft. No tenderness. No palpable mass. RECTAL: Not performed. EXTREMITIES: No clubbing, cyanosis or edema. SKIN: No rash. NEUROLOGIC: No gross focal finding. PSYCHIATRIC: The patient is calm and cooperative. LABORATORY DATA: WBC 10.9, platelets 213, hemoglobin 9.2. Creatinine 1.09, estimated GFR 85, AST 38, ALT 118, alkaline phosphatase 59. IMPRESSION: Infectious mononucleosis with severe tonsillitis, which has been treated and improved with antibiotics. I expect the infectious mononucleosis to take its course over several weeks and the patient should gradually improve. He does still have some degree of splenomegaly, which should improve with time. I do not think the gallstone is associated with the infectious mononucleosis and I see no setback to having a cholecystectomy. I also do not think that his gastrointestinal bleeding episode is related to infectious mononucleosis. There is no additional treatment necessary for the infectious mononucleosis and that illness showed resolve over time and should gradually improve. I have explained my recommendations to the patient's mom. I will not follow him since I do not think that the infectious mononucleosis needs to be followed during this hospitalization. Thank you for this consultation. MD SHAYLA Murphy/nikolas , 06:22 PM , 06:45 PM
[2018-07-19] MEDS ORDERED: Sodium Chloride 0.9% 2 ML Flush PRN IV.FLUSH (22:56)
[2018-07-20] MEDS: Piperacil/Tazo 3.375 GM Premix 50 ML IV.SIG SCH ×4 (01:19→20:01)
[2018-07-20] MEDS: Sod Chloride 0.9% Inj 1,000 ML IV.CONT SCH ×3 (05:57→14:42)
[2018-07-20] MEDS ORDERED: Lidocaine PF 1% Inj 5 ML Syringe OTHER ONE (09:30)
--- NOTE | 2018-07-20 09:48 | GIPROC ---
[facility] [address] [facility]. [facility], [address] COLONOSCOPY PROCEDURE REPORT EXAM DATE: 07/20/2018 PATIENT NAME: Joseph Pacheco MR #: [id number] BIRTHDATE: 1995 ENDOSCOPIST: Aby Sam MD ORDER #: [id number] SUPERVISOR CAP [employer] HAT PRODUCTION: Yaya Rivera Pena, Gabriela, and Wilma Rios STATUS: inpatient INDICATIONS: The patient is a 23 yr old male here for a colonoscopy due to abdominal pain, iron deficiency anemia, and hematochezia PROCEDURE PERFORMED: Colonoscopy with biopsy MEDICATIONS: None and Per Anesthesia. PREP QUALITY: The [place] Bowel Prep Score was Right colon 2, Mid colon 2, and Left colon 3. Total = 7. PREP TYPE:Magnesium Citrate ESTIMATED BLOOD LOSS: None CONSENT: The patient understands the risks and benefits of the procedure and understands that these risks include, but are not limited to: sedation, allergic reaction, infection, perforation and/or bleeding. Alternative means of evaluation and treatment include, among others: physical exam, x-rays, and/or surgical intervention. The patient elects to proceed with this endoscopic procedure. medical equipment was checked for proper function. Hand hygiene and appropriate measures for infection prevention was taken. After the risks, benefits and alternatives of the procedure were thoroughly explained, Informed consent was verified, confirmed and timeout was successfully executed by the treatment team. A digital exam revealed external hemorrhoids The Pentax EC-[id number] endoscope was introduced through the anus and advanced to the terminal ileum which was intubated for a short distance. The instrument was then slowly withdrawn as the colon was fully examined. COLON FINDINGS: A medium sized patch of abnormal mucosa was found at the ileocecal valve. The mucosa was edematous and congested. A biopsy was performed using cold forceps. A medium sized circumferential diffuse patch of colitis was found in the sigmoid colon and rectum. The mucosa was congested, edematous and erythematous. Multiple biopsies of the area were performed using cold forceps. Retroflexed views revealed internal hemorrhoids and Retroflexed views revealed small internal hemorrhoids The scope was then completely withdrawn from the patient and the procedure terminated. PROCEDURE WITHDRAWAL TIME:6minutes ADVERSE EVENTS: There were no complications. IMPRESSIONS: 1. Medium sized abnormal mucosa was found at the ileocecal valve; The mucosa was edematous and congested; biopsy was performed using cold forceps 2. Medium sized circumferential diffuse colitis was found in the sigmoid colon and rectum; The mucosa was congested, edematous and erythematous; multiple biopsies of the area were performed using cold forceps 3. Retroflexed views revealed internal hemorrhoids 4. Retroflexed views revealed small internal hemorrhoids 5. Revealed external hemorrhoids RECOMMENDATIONS: 1. Await biopsy results. Biopsy results will not be ready for 7-10 days. If you don't hear from us in two weeks, call our office for results. 2. Continue surveillance RECALL: Return 1 year Colonoscopy, pending biopsy results Aby Sam MD eSigned: Aby Sam MD 07/20/2018 9:48 AM cc: PATIENT NAME: Joseph Pacheco MR#: [id number]
[2018-07-20] MEDS: Sodium Chloride 0.9% 2 ML Flush BID IV.FLUSH SCH ×2 (10:25→20:02)
--- NOTE | 2018-07-20 11:04 | P.PN ---
Subjective Interval history: This is a pleasant 23 y/o male who had recent admission due to mononucleosis and tonsillitis- presented to ER with abdominal pain and GI bleed. his mother said that he was admitted to the hospital twice within the past three weeks. they were told that he might've had autoimmune hepatitis and was scheduled for liver biopsy. he was also found to have gallstone for which he was seen by a surgeon and was supposed to have cholecystectomy. had Hematemesis status post EGD found LA Class A Esophagitis, erythematous gastritis in gastric antrum, recommended to follow biopsy, anti reflux regimen, PPIs, discussed with Doctor Flaco does not consider Colonoscopy his mother wants to know why and at this time GI specialist talking with relatives. Probable Cholecystectomy as per General surgery. 07/20: Seen in his bedroom in the presence of his Mother, she wanted to know about H pylori he had already an EGD and biopsies taken. at this time status post Colonoscopy Edematous Mucosa on the ileocecal valve area, sigmoid colon with diffuse circumferential colitis, small internal hemorrhoids, biopsies taken. Physical Exam Vital signs: Vital Signs 07/19/18 12:00 07/19/18 16:00 07/19/18 20:00 Temperature 98.6 F 98.3 F 98.0 F Pulse Rate 101 H 107 H 104 H Respiratory Rate 18 16 19 Blood Pressure 132/60 120/58 L 143/67 H Pulse Oximetry 99 97 94 L 07/20/18 00:00 07/20/18 08:00 07/20/18 09:54 Temperature 98.0 F 97.0 F L 98.4 F Pulse Rate 99 H 80 87 Respiratory Rate 19 18 16 Blood Pressure 132/55 L 120/64 99/49 L Pulse Oximetry 98 98 100 07/20/18 10:07 07/20/18 10:30 Temperature 98.4 F 97.8 F Pulse Rate 78 91 H Respiratory Rate 16 17 Blood Pressure 115/60 114/63 Pulse Oximetry 98 98 Intake & Output 07/19/18 07/20/18 07/20/18 18:59 06:59 18:59 Intake Total 1949 50 / 50 Output Total 450 / 450 Balance 1949 1650 / 1650 50 / 50 Weight 131 kg Intake: IV 1050 / 1050 2099 50 / 50 NS Inj 1,000 ML @ 125 mls/hr IV 1000 / 1000 1999 / 1999 .CONT .Q8H [facility] Rx#:[id number] Zosyn 3.375 GM Premix 50 ML @ 50 / 50 100 / 100 50 / 50 100 mls/hr IV.SIG Q6H [facility] Rx#: [id number] Oral 800 / 800 0 / 0 Anesthesia Amount 100 / 100 Output: Stool 450 / 450 Other: # Voids 4 3 Date of Last Bowel Movement 07/19/18 07/20/18 07/20/18 # Bowel Movements 4 # Incontinent Bowel Movements 0 Narrative: GENERAL: This is a well-nourished, well-developed patient, in no apparent distress. CARDIOVASCULAR: Regular rate and rhythm without murmurs, gallops, or rubs. RESPIRATORY: Clear to auscultation. Breath sounds equal bilaterally. No wheezes , rales, or rhonchi. GASTROINTESTINAL: Abdomen soft, non-tender, nondistended. Normal active bowel sounds MUSCULOSKELETAL: Extremities without clubbing, cyanosis, or edema. NEURO: Alert & Oriented x4 to person, place, time, situation. Moves all ext x4 Results - Labs CBC & Chem 7: 07/19/18 03:55 07/19/18 03:55 Laboratory Results - last 24 hr 07/18/18 21:35 PARDEEP Screen Neg - Procedures EGD Colonoscopy Assessment and Plan - Plan - GI bleed/Hematemesis patient to continue supportive care with IV fluids and PPIs, status post EGD found LA Class A Esophagitis, erythematous gastritis in gastric antrum, recommended to follow biopsy, anti reflux regimen, PPIs, discussed with Doctor Flaco does not consider Colonoscopy his mother wants to know why and at this time GI specialist talking with relatives. Colonoscopy performed found Edematous Mucosa on the ileocecal valve area, sigmoid colon with diffuse circumferential colitis, small internal hemorrhoids, biopsies taken. -abdominal pain with cholelithiasis/ possible cholecystitis continue with IV antibiotics and pain control-as per General Surgery for Cholecystectomy tomorrow. -elevated LFT's- will obtain the medical record from recent hospitalization. Hepatitis profile negative. -history of Mononucleosis ID specialist followed no further management okay for surgery and signed off the case. DVT prophylaxis with SCDs. Code Status: Full code. Discussed Condition With: patient and Nurse Mr. Fautsin Discharge Planning: once cleared by specialists.
[2018-07-20] MEDS: Pantoprazole Inj 40 MG Vial IV.PUSH SCH (15:40)
--- NOTE | 2018-07-20 16:32 | P.PNGS ---
Subjective Interval history: DAILY PROGRESS NOTE FOR SURGICAL ATTENDING, DR. RISHABH MARSHALL Ambulating in the room Mom at bedside Physical Exam Vital signs: Vital Signs 07/19/18 20:00 07/20/18 00:00 07/20/18 08:00 Temperature 98.0 F 98.0 F 97.0 F L Pulse Rate 104 H 99 H 80 Respiratory Rate 19 19 18 Blood Pressure 143/67 H 132/55 L 120/64 Pulse Oximetry 94 L 98 98 07/20/18 09:54 07/20/18 10:07 07/20/18 10:30 Temperature 98.4 F 98.4 F 97.8 F Pulse Rate 87 78 91 H Respiratory Rate 16 16 17 Blood Pressure 99/49 L 115/60 114/63 Pulse Oximetry 100 98 98 07/20/18 12:00 Temperature 98.3 F Pulse Rate 99 H Respiratory Rate 18 Blood Pressure 116/56 L Pulse Oximetry 99 Intake & Output 07/19/18 07/20/18 07/20/18 18:59 06:59 18:59 Intake Total 1949 / 2099 1560 / 1560 Output Total 450 / 450 Balance 1949 1650 / 1650 1560 / 1560 Weight 131 kg Intake: IV 1050 / 1050 2100 / 2100 1160 / 1160 NS Inj 1,000 ML @ 125 mls/hr IV 1000 / 1000 2000 / 2000 1000 / 1000 .CONT .Q8H [facility] Rx#:[id number] LR 1000 mL Inj 1,000 ML @ 30 60 / 60 mls/hr IV.SIG .Q24H [facility] Rx#: [id number] Zosyn 3.375 GM Premix 50 ML @ 50 / 50 100 / 100 100 / 100 100 mls/hr IV.SIG Q6H [facility] Rx#: [id number] Oral 800 / 800 0 / 0 Anesthesia Amount 100 / 100 400 / 400 Output: Stool 450 / 450 Other: # Voids 4 3 Date of Last Bowel Movement 07/19/18 07/20/18 07/20/18 # Bowel Movements 4 # Incontinent Bowel Movements 0 Narrative: Alert and awake Abd: soft minimally tender Results - Labs 07/19/18 03:55 07/19/18 03:55 Laboratory Results - last 24 hr 07/18/18 21:35 PARDEEP Screen Neg Assessment and Plan - Assessment (1) RUQ abdominal pain Code(s): R10.11 - Right upper quadrant pain Status: Acute (2) Gallstones and inflammation of gallbladder without obstruction Code(s): K80.00 - Calculus of gallbladder with acute cholecystitis without obstruction Status: Acute (3) Gastritis Code(s): K29.70 - Gastritis, unspecified, without bleeding Status: Acute (4) Anemia Code(s): D64.9 - Anemia, unspecified Status: Suspected Onset Date: ~ (5) Mononucleosis syndrome Code(s): B27.90 - Infectious mononucleosis, unspecified without complication Status: Acute - Plan 23 year old male with RUQ abdominal pain -s/p colonoscopy today; await results -Plan for lap tyrese tomorrow with liver biopsy -Consents on chart -Diet as tolerated; NPO after MN -IVF - Attending Attestation NOTE FOR SURGICAL ATTENDING, DR. RISHABH MARSHALL Discussed with mother at bedside and the uncle. Patient had colonoscopy showing colitis Plan laparoscopic cholecystectomy tomorrow with a liver biopsy I agree with above assessment and plan. The exam, history, and the medical decision-making described in the above note were completed with the assistance of the mid-level provider. I reviewed and agree with the findings presented. I attest that I had a [id number] encounter with the patient on the same day, and personally performed and documented my assessment and findings in the medical record. The following services were provided during this hospital visit: Chart data review, vital sign assessments/reviewing monitor data Review of consultations notes if present. Medication orders/review and/or management Ordering and/or reviewing lab tests Ordering and/or interpreting/reviewing x-rays and/or diagnostic studies Care of the patient and discussion of the patient with the care team Documentation time To help prompt me to consider important information that might be impacting today's encounter and assessment, Information from prior notes written by myself or my colleagues may have been "brought forward/copy and pasted" into today's note. (3) Gastritis Qualifiers: Gastritis type: superficial Chronicity: acute Gastritis bleeding: with bleeding Qualified Code(s): K29.01 - Acute gastritis with bleeding
[2018-07-20] MEDS: Acetaminophen 325 MG Tablet PO PRN (20:01)
[2018-07-21] MEDS: Piperacil/Tazo 3.375 GM Premix 50 ML IV.SIG SCH ×5 (01:03→21:00)
[2018-07-21] MEDS: Sod Chloride 0.9% Inj 1,000 ML IV.CONT SCH ×3 (01:04→16:15)
[2018-07-21] MEDS: Sodium Chloride 0.9% 2 ML Flush BID IV.FLUSH SCH ×2 (08:17→21:00)
--- NOTE | 2018-07-21 09:43 | P.PNGI ---
Subjective Interval history: Pt resting in bed, mother at bedside. Pt has not had any further hematemesis or hematochezia. Currently NPO for cholecystectomy and liver biopsy today. <Apurva Jara - Last Filed: 07/21/18 09:32> Physical Exam Vital signs: Vital Signs 07/20/18 09:54 07/20/18 10:07 07/20/18 10:30 Temperature 98.4 F 98.4 F 97.8 F Pulse Rate 87 78 91 H Respiratory Rate 16 16 17 Blood Pressure 99/49 L 115/60 114/63 Pulse Oximetry 100 98 98 07/20/18 12:00 07/20/18 16:00 07/20/18 20:00 Temperature 98.3 F 98.9 F 99.2 F Pulse Rate 99 H 92 H 98 H Respiratory Rate 18 19 18 Blood Pressure 116/56 L 105/53 L 125/58 L Pulse Oximetry 99 99 98 07/21/18 00:41 07/21/18 04:00 07/21/18 07:15 Temperature 98.2 F 97.9 F 98.5 F Pulse Rate 86 81 85 Respiratory Rate 18 17 20 Blood Pressure 108/57 L 114/59 L 110/61 Pulse Oximetry 98 96 98 Intake & Output 07/20/18 07/21/18 07/21/18 18:59 06:59 18:59 Intake Total 2084 50 / 50 Balance 2084 50 / 50 Weight 131 kg Intake: IV 1160 / 1160 2099 50 / 50 NS Inj 1,000 ML @ 125 mls/hr IV 1000 / 1000 1999 .CONT .Q8H [facility] Rx#:[id number] LR 1000 mL Inj 1,000 ML @ 30 60 / 60 mls/hr IV.SIG .Q24H [facility] Rx#: [id number] Zosyn 3.375 GM Premix 50 ML @ 100 / 100 100 / 100 50 / 50 100 mls/hr IV.SIG Q6H [facility] Rx#: [id number] Oral 525 / 525 Anesthesia Amount 400 / 400 Other: # Voids 4 3 Date of Last Bowel Movement 07/20/18 07/20/18 - Constitutional no acute distress - Routine HEENT Exam Head: Present: normocephalic, atraumatic - Routine Respiratory Exam Absent: accessory muscle use - Routine Cardiovascular Exam Present: RRR - Routine Abdominal Exam Present: soft, normoactive bowel sounds. Absent: tenderness, distended - Routine Skin Exam Present: dry, warm - Routine Neurological Exam Present: alert, oriented X3 <Apurva Jara - Last Filed: 07/21/18 09:32> Vital signs: Vital Signs 07/20/18 16:00 07/20/18 20:00 07/21/18 00:41 Temperature 98.9 F 99.2 F 98.2 F Pulse Rate 92 H 98 H 86 Respiratory Rate 19 18 18 Blood Pressure 105/53 L 125/58 L 108/57 L Pulse Oximetry 99 98 98 07/21/18 04:00 07/21/18 07:15 07/21/18 11:20 Temperature 97.9 F 98.5 F 98.3 F Pulse Rate 81 85 86 Respiratory Rate 17 20 18 Blood Pressure 114/59 L 110/61 117/56 L Pulse Oximetry 96 98 Intake & Output 07/20/18 07/21/18 07/21/18 18:59 06:59 18:59 Intake Total 2084 / 2099 100 / 100 Balance 2084 / 2099 100 / 100 Weight 131 kg Intake: IV 1160 / 1160 2099 / 2099 100 / 100 NS Inj 1,000 ML @ 125 mls/hr IV 1000 / 1000 2000 / 2000 .CONT .Q8H [facility] Rx#:[id number] LR 1000 mL Inj 1,000 ML @ 30 60 / 60 mls/hr IV.SIG .Q24H [facility] Rx#: [id number] Zosyn 3.375 GM Premix 50 ML @ 100 / 100 100 / 100 100 / 100 100 mls/hr IV.SIG Q6H [facility] Rx#: [id number] Oral 525 / 525 Anesthesia Amount 400 / 400 Other: # Voids 4 3 Date of Last Bowel Movement 07/20/18 07/20/18 <Aby Sam - Last Filed: 07/21/18 15:47> Results - Labs CBC & Chem 7: 07/19/18 03:55 07/19/18 03:55 - Procedures EGD Colonoscopy <Apurva Jara - Last Filed: 07/21/18 09:32> - Labs CBC & Chem 7: 07/19/18 03:55 07/19/18 03:55 Laboratory Results - last 24 hr 07/18/18 21:35 IgA 162 Anti-Smooth Muscle Ab Negative Tiss Transglutamin IgG ND <Aby Sam - Last Filed: 07/21/18 15:47> Assessment and Plan - Plan Assessment: - Hematochezia, present on admission Pt reports 30 lb unintentional weight loss since Jun 30, has been sick with nausea, vomiting, abdominal pain, fever, chills- multiple admission at in [place] over the past month Unknown history of UC or Crohns, his father was adopted Colonoscopy (07/20) Medium sized abnormal mucosa was found at the ileocecal valve; The mucosa was edematous and congested; biopsy was performed using cold forceps. Medium sized circumferential diffuse colitis was found in the sigmoid colon and rectum; The mucosa was congested, edematous and erythematous; multiple biopsies of the area were performed using cold forceps. Internal and external hemorrhoids. - Hematemesis, present on admission EGD (07/19) Class A esophagitis S/P biopsy. Erythematous gastritis in the gastric antrum, biopsy. Normal duodenal mucosa in the bulb and second portion of the duodenum. Hiatal hernia. Biopsy ( antrum) without significant histopathologic abnormality (GE) moderate to severe acute and chronic inflammatory changes consistent with reflux negative for acute intestinal metaplasia and dysplasia - Elevated LFTs- found during previous admission for [place] at [facility] PARDEEP-negative AMA- negative ASMA- positive titer 1:20 hepatitis panel negative Family history significant for maternal grandmother with cirrhosis secondary to autoimmune hepatitis. Pt is planned for liver biopsy today. CT abdomen and pelvis W IV contrast (07/18) Hepatomegaly and hepatic steatosis. - Cholelithiasis - US gallbladder- cholelithiasis- gallbladder wall thickening and pericholecystic fluid noted. Negative sonographic Michelle's sign. The possibility of cholecystitis is difficult to exclude. Leukocytosis present on admission. Pt currently on Zosyn Plan: Protonix Colon biopsy pending Zosyn Sanjuanita and liver biopsy today Anti-emetics Pain control Further recommendations to follow pt has been seen and examined by myself and Dr. Arechiga and this note is written on his behalf <Apurva Jara - Last Filed: 07/21/18 09:32> - Plan Cholecystectomy and possible liver biopsy today. Colon biopsies pending. <Aby Sam - Last Filed: 07/21/18 15:47>
--- NOTE | 2018-07-21 10:09 | P.PN ---
Subjective Interval history: This is a pleasant 23 y/o male who had recent admission due to mononucleosis and tonsillitis- presented to ER with abdominal pain and GI bleed. his mother said that he was admitted to the hospital twice within the past three weeks. they were told that he might've had autoimmune hepatitis and was scheduled for liver biopsy. he was also found to have gallstone for which he was seen by a surgeon and was supposed to have cholecystectomy. had Hematemesis status post EGD found LA Class A Esophagitis, erythematous gastritis in gastric antrum, recommended to follow biopsy, anti reflux regimen, PPIs, discussed with Doctor Flaco does not consider Colonoscopy his mother wants to know why and at this time GI specialist talking with relatives. Probable Cholecystectomy as per General surgery. 07/20: Seen in his bedroom in the presence of his Mother, she wanted to know about H pylori he had already an EGD and biopsies taken. at this time status post Colonoscopy Edematous Mucosa on the ileocecal valve area, sigmoid colon with diffuse circumferential colitis, small internal hemorrhoids, biopsies taken. 07/21: Stable in his bedroom, no complaint no nausea, vomit or diarrhea, had Colonoscopy yesterday, due to elevated LFTs PARDEEP negative, AMA negative, ASMA positive titer 1:20, Hepatitis panel negative, family history positive for autoimmune Hepatitis Planned for Liver biopsy today, has Hepatomegaly and Hepatic steatosis, as per GI specialist to continue PPIs, Zosyn, awaiting for Laparoscopic Cholecystectomy later today. Physical Exam Vital signs: Vital Signs 07/20/18 10:30 07/20/18 12:00 07/20/18 16:00 Temperature 97.8 F 98.3 F 98.9 F Pulse Rate 91 H 99 H 92 H Respiratory Rate 17 18 19 Blood Pressure 114/63 116/56 L 105/53 L Pulse Oximetry 98 99 99 07/20/18 20:00 07/21/18 00:41 07/21/18 04:00 Temperature 99.2 F 98.2 F 97.9 F Pulse Rate 98 H 86 81 Respiratory Rate 18 18 17 Blood Pressure 125/58 L 108/57 L 114/59 L Pulse Oximetry 98 98 96 07/21/18 07:15 Temperature 98.5 F Pulse Rate 85 Respiratory Rate 20 Blood Pressure 110/61 Pulse Oximetry 98 Intake & Output 07/20/18 07/21/18 07/21/18 18:59 06:59 18:59 Intake Total 2084 50 / 50 Balance 2084 50 / 50 Weight 131 kg Intake: IV 1160 / 1160 2099 50 / 50 NS Inj 1,000 ML @ 125 mls/hr IV 1000 / 1000 1999 .CONT .Q8H [facility] Rx#:[id number] LR 1000 mL Inj 1,000 ML @ 30 60 / 60 mls/hr IV.SIG .Q24H [facility] Rx#: [id number] Zosyn 3.375 GM Premix 50 ML @ 100 / 100 100 / 100 50 / 50 100 mls/hr IV.SIG Q6H [facility] Rx#: [id number] Oral 525 / 525 Anesthesia Amount 400 / 400 Other: # Voids 4 3 Date of Last Bowel Movement 07/20/18 07/20/18 Narrative: GENERAL: This is a well-nourished, well-developed patient, in no apparent distress. CARDIOVASCULAR: Regular rate and rhythm without murmurs, gallops, or rubs. RESPIRATORY: Clear to auscultation. Breath sounds equal bilaterally. No wheezes , rales, or rhonchi. GASTROINTESTINAL: Abdomen soft, non-tender, nondistended. Normal active bowel sounds MUSCULOSKELETAL: Extremities without clubbing, cyanosis, or edema. NEURO: Alert & Oriented x4 to person, place, time, situation. Moves all ext x4 Results - Labs CBC & Chem 7: 07/19/18 03:55 07/19/18 03:55 - Procedures EGD Colonoscopy Assessment and Plan - Plan - GI bleed/Hematemesis patient to continue supportive care with IV fluids and PPIs, status post EGD found LA Class A Esophagitis, erythematous gastritis in gastric antrum, recommended to follow biopsy, anti reflux regimen, PPIs, discussed with Doctor Flaco does not consider Colonoscopy his mother wants to know why and at this time GI specialist talking with relatives. Colonoscopy performed found Edematous Mucosa on the ileocecal valve area, sigmoid colon with diffuse circumferential colitis, small internal hemorrhoids, biopsies taken. -Due to elevated LFTs PARDEEP negative, AMA negative, ASMA positive titer 1:20, Hepatitis panel negative, family history positive for autoimmune Hepatitis Planned for Liver biopsy today, has Hepatomegaly and Hepatic steatosis, as per GI specialist to continue PPIs, Zosyn, awaiting for Laparoscopic Cholecystectomy later today. -abdominal pain with cholelithiasis/ possible cholecystitis continue with IV antibiotics and pain control-as per General Surgery for Cholecystectomy later today. -history of Mononucleosis ID specialist followed no further management okay for surgery and signed off the case. DVT prophylaxis with SCDs. Code Status: Full Code Discussed Condition With: Patient and her Mother in the room. Discharge Planning: once cleared by specialists.
[2018-07-21 11:52] LABS: IgA Serum 162 mg/dL (81-463); Tissue Transglutaminase Ab IgG ND U/mL (())
[2018-07-21] MEDS ORDERED: Bupivacaine/Epinephrine 0.5% Inj 50 ML Vial ONE (13:29)
[2018-07-21] MEDS ORDERED: Neostigmine Inj 5 MG/5 ML Syringe IV.PUSH ONE (14:15)
[2018-07-21] MEDS ORDERED: Lidocaine PF 1% Inj 5 ML Syringe OTHER ONE (14:15)
[2018-07-21] MEDS ORDERED: Glycopyrrolate Inj 1 MG/5 ML Syringe IV.PUSH ONE (14:15)
--- NOTE | 2018-07-21 15:34 | P.OP ---
- Preoperative Diagnosis (1) Gallstones and inflammation of gallbladder without obstruction - Postoperative Diagnosis (1) Gallstones and inflammation of gallbladder without obstruction Date of procedure: 07/21/18 Procedure: Laparoscopic cholecystectomy with liver biopsy Anesthesia: GETA Surgeon: Nacho Camacho MD Pathology: other (Gallbladder and liver biopsy) Operation and Findings: PREOPERATIVE DIAGNOSIS: Cholelithiasis And/or Cholecystitis POSTOP DIAGNOSIS: Cholelithiasis cholecystitis PROCEDURE: Laparoscopic Cholecystectomy liver biopsy ANESTHESIA: General SURGEON: Nacho Camacho M.D. ASST. see operating room records PROCEDURE DETAILS The patient was brought to the operating room and after proper identification. The patient was intubated after the induction of appropriate anesthesia. The patient remained under general anesthesia for the duration of the case. The patient was prepped with an antiseptic over the abdomen in the usual fashion and then he was draped in the usual sterile fashion. Following the draping, the pneumoperitoneum was established via Veress needle after saline load test had been performed via a infra-umbilical incision. After direct visualization of the peritoneum, the trocar was introduced and insufflation was begun. After appropriate insufflation a scope was inserted and the abdomen was visually inspected to be benign in gross visualization. Next, another 5 mm port was placed just below the xiphoid. This was then followed by the placement of 5 mm ports in between the 2 previously placed ports. All port sites were anesthetized with a Marcaine solution. The gallbladder was easily identified. There were a few adhesions. No intraabdominal fluid. Upon retraction of the gallbladder, the infundibulum was identified. After some blunt dissection, the cystic duct was identified and then skeletonized using the small grasper. After appropriate identification of the cystic duct, it was clipped 3 times with 2 clips staying, 1 clip going. It was then transected with scissors. This was performed without any complication. Next, a cystic artery was identified and 2 surgical clips on the proximal end and 1 surgical clip on the distal end were applied and this was transected using the laparoscopic scissors. Following this, the gallbladder was easily retracted back and electrocautery was used to dissect the gallbladder fossa. There was a well-established plane. After application of the clips, no further bleeding from this site was appreciated. Hemostasis was attained on the gallbladder fossa using a small amount of electrocautery. Following the removal of the gallbladder from the gallbladder fossa, it was placed in an endobag and subsequently removed from the supraumbilical port site. We double checked for hemostasis at the cystic artery. Also checked the cystic duct stump which showed no bile leakage. All ports were then removed Using the Biopty gun we then did a laparoscopic liver biopsy obtaining 3 samples with the Biopty gun to be evaluated by the pathologist The infra-umbilical fascia was closed directly with 0 Vicryl and then the dermis was closed at all 3 incision sites with a 4-0 absorbable monofilament in a running subcuticular manner. The fascia was closed in a simple interrupted manner. Steri-Strips and dressings were placed over the incision sites. The patient was awakened from anesthesia. The patient was returned to post-anesthesia care unit in a stable condition. DETAIL SPECIFIC TO THIS PROCEDURE: Normal-appearing appendix somewhat fatty liver slightly inflamed gallbladder with a stone. Nacho Camacho M.D.
[2018-07-21] MEDS ORDERED: fentaNYL Citrate Inj 100 MCG/2 ML Ampul ONE ×2 (15:36)
[2018-07-21 15:37] LABS: Smooth Muscle Total Auto Abs Negative (Negative)
[2018-07-21] MEDS ORDERED: *Meperidine Inj 25 MG/ML Vial PERIprocedural Use ONLY ONE (15:40)
[2018-07-21] MEDS ORDERED: *morphine SULFATE 4 MG/ML PERIprocedure ONLY ONE ×3 (15:43→16:03)
[2018-07-21] MEDS ORDERED: *Ondansetron Inj 4 MG/2 ML Vial PERIprocedural Use ONLY ONE (16:09)
[2018-07-21] MEDS: Pantoprazole Inj 40 MG Vial IV.PUSH SCH (16:15)
[2018-07-21 17:52] LABS: Ceruloplasmin 23 mg/dL (18-36)
[2018-07-21] MEDS: Morphine Inj 4 MG/ML Vial IV.PUSH PRN (18:37)
[2018-07-22] MEDS: Morphine Inj 4 MG/ML Vial IV.PUSH PRN ×2 (00:16→05:41)
[2018-07-22] MEDS: Sod Chloride 0.9% Inj 1,000 ML IV.CONT SCH ×2 (00:19→08:17)
[2018-07-22] MEDS: Piperacil/Tazo 3.375 GM Premix 50 ML IV.SIG SCH ×3 (02:26→13:15)
[2018-07-22] MEDS: Sodium Chloride 0.9% 2 ML Flush BID IV.FLUSH SCH (08:21)
[2018-07-22] MEDS ORDERED: Morphine Sulfate Inj 2 MG/ML Vial IV.PUSH PRN (09:14)
--- NOTE | 2018-07-22 09:45 | P.PNGS ---
Subjective Interval history: Up to chair eating breakfast Mom at bedside Physical Exam Vital signs: Vital Signs 07/21/18 11:20 07/21/18 15:27 07/21/18 15:30 Temperature 98.3 F 98.6 F Pulse Rate 86 109 H 105 H Respiratory Rate 18 16 19 Blood Pressure 117/56 L 135/72 129/75 Pulse Oximetry 99 95 07/21/18 15:45 07/21/18 16:00 07/21/18 16:15 Temperature 98.4 F Pulse Rate 110 H 97 H 94 H Respiratory Rate 23 16 21 Blood Pressure 123/66 131/72 120/68 Pulse Oximetry 99 93 L 97 07/21/18 16:56 07/21/18 20:00 Temperature 98.0 F 99.1 F Pulse Rate 89 110 H Respiratory Rate 18 16 Blood Pressure 133/62 116/64 Pulse Oximetry 94 L 98 Intake & Output 07/21/18 07/22/18 07/22/18 18:59 06:59 18:59 Intake Total 700 / 700 200 / 200 150 / 150 Balance 700 / 700 200 / 200 150 / 150 Intake: IV 700 / 700 200 / 200 150 / 150 NS Inj 1,000 ML @ 125 mls/hr IV 500 / 500 .CONT .Q8H [facility] Rx#:[id number] Ofirmev Inj 1,000 mg In 100 ml 100 / 100 100 / 100 100 / 100 @ 400 mls/hr IV.SIG Q6H A[facility]A Rx# :[id number] Zosyn 3.375 GM Premix 50 ML @ 100 / 100 100 / 100 50 / 50 100 mls/hr IV.SIG Q6H ADELINA Rx#: [id number] Other: # Voids 2 Date of Last Bowel Movement 07/20/18 07/20/18 # Bowel Movements 0 Narrative: Alert and awake Abd: lap sites c/d/i; mild RUQ tenderness with palpation Results - Labs 07/19/18 03:55 07/19/18 03:55 Laboratory Results - last 24 hr 07/18/18 21:35 Ceruloplasmin 23 IgA 162 Anti-Smooth Muscle Ab Negative Tiss Transglutamin IgG ND Assessment and Plan - Assessment (1) RUQ abdominal pain Code(s): R10.11 - Right upper quadrant pain Status: Acute Plan: 23 year old male with RUQ abdominal pain -POD1 lap tyrese and liver biopsy -Added Edgar; Morphine for breakthrough pain -OOB and mobilize -Regular diet -Went over intraoperative photographs with patient and mother -GS clear for DC -Follow up Jul 29 at 10:10AM (2) Gallstones and inflammation of gallbladder without obstruction Code(s): K80.00 - Calculus of gallbladder with acute cholecystitis without obstruction Status: Acute (3) Gastritis Code(s): K29.70 - Gastritis, unspecified, without bleeding Status: Acute (4) Anemia Code(s): D64.9 - Anemia, unspecified Status: Suspected Onset Date: ~ (5) Mononucleosis syndrome Code(s): B27.90 - Infectious mononucleosis, unspecified without complication Status: Acute (3) Gastritis Qualifiers: Gastritis type: superficial Chronicity: acute Gastritis bleeding: with bleeding Qualified Code(s): K29.01 - Acute gastritis with bleeding
[2018-07-22 09:46] VITALS: BP 104/50; PULSE 86; RESP 19; TEMP 98.1; O2SAT 99
--- NOTE | 2018-07-22 10:20 | P.PN ---
Subjective Interval history: This is a pleasant 23 y/o male who had recent admission due to mononucleosis and tonsillitis- presented to ER with abdominal pain and GI bleed. his mother said that he was admitted to the hospital twice within the past three weeks. they were told that he might've had autoimmune hepatitis and was scheduled for liver biopsy. he was also found to have gallstone for which he was seen by a surgeon and was supposed to have cholecystectomy. had Hematemesis status post EGD found LA Class A Esophagitis, erythematous gastritis in gastric antrum, recommended to follow biopsy, anti reflux regimen, PPIs, discussed with Doctor Flaco does not consider Colonoscopy his mother wants to know why and at this time GI specialist talking with relatives. Probable Cholecystectomy as per General surgery. 07/20: Seen in his bedroom in the presence of his Mother, she wanted to know about H pylori he had already an EGD and biopsies taken. at this time status post Colonoscopy Edematous Mucosa on the ileocecal valve area, sigmoid colon with diffuse circumferential colitis, small internal hemorrhoids, biopsies taken. 07/21: Stable in his bedroom, no complaint no nausea, vomit or diarrhea, had Colonoscopy yesterday, due to elevated LFTs PARDEEP negative, AMA negative, ASMA positive titer 1:20, Hepatitis panel negative, family history positive for autoimmune Hepatitis Planned for Liver biopsy today, has Hepatomegaly and Hepatic steatosis, as per GI specialist to continue PPIs, Zosyn, awaiting for Laparoscopic Cholecystectomy later today. 07/22: Seen in his bedroom in the presence of his mother Okay to discharge from GI specialist standpoint and General Surgery and follow as outpatient with specialists as scheduled, also by PCP, no nausea, vomit or diarrhea. Physical Exam Vital signs: Vital Signs 07/21/18 11:20 07/21/18 15:27 07/21/18 15:30 Temperature 98.3 F 98.6 F Pulse Rate 86 109 H 105 H Respiratory Rate 18 16 19 Blood Pressure 117/56 L 135/72 129/75 Pulse Oximetry 99 95 07/21/18 15:45 07/21/18 16:00 07/21/18 16:15 Temperature 98.4 F Pulse Rate 110 H 97 H 94 H Respiratory Rate 23 16 21 Blood Pressure 123/66 131/72 120/68 Pulse Oximetry 99 93 L 97 07/21/18 16:56 07/21/18 20:00 07/22/18 08:00 Temperature 98.0 F 99.1 F 98.1 F Pulse Rate 89 110 H 86 Respiratory Rate 18 16 19 Blood Pressure 133/62 116/64 104/50 L Pulse Oximetry 94 L 98 99 Intake & Output 07/21/18 07/22/18 07/22/18 18:59 06:59 18:59 Intake Total 700 / 700 200 / 200 150 / 150 Balance 700 / 700 200 / 200 150 / 150 Intake: IV 700 / 700 200 / 200 150 / 150 NS Inj 1,000 ML @ 125 mls/hr IV 500 / 500 .CONT .Q8H A[facility] Rx#:[id number] Ofirmev Inj 1,000 mg In 100 ml 100 / 100 100 / 100 100 / 100 @ 400 mls/hr IV.SIG Q6H [facility] Rx# :[id number] Zosyn 3.375 GM Premix 50 ML @ 100 / 100 100 / 100 50 / 50 100 mls/hr IV.SIG Q6H A[facility]LINA Rx#: [id number] Other: # Voids 2 Date of Last Bowel Movement 07/20/18 07/20/18 # Bowel Movements 0 Narrative: GENERAL: This is a well-nourished, well-developed patient, in no apparent distress. CARDIOVASCULAR: Regular rate and rhythm without murmurs, gallops, or rubs. RESPIRATORY: Clear to auscultation. Breath sounds equal bilaterally. No wheezes , rales, or rhonchi. GASTROINTESTINAL: Abdomen soft, Mild tenderness. clean surgical wounds. MUSCULOSKELETAL: Extremities without clubbing, cyanosis, or edema. NEURO: Alert & Oriented x4 to person, place, time, situation. Moves all ext x4 Results - Labs CBC & Chem 7: 07/19/18 03:55 07/19/18 03:55 Laboratory Results - last 24 hr 07/18/18 21:35 Ceruloplasmin 23 IgA 162 Anti-Smooth Muscle Ab Negative Tiss Transglutamin IgG ND - Procedures EGD Colonoscopy Laparoscopic Cholecystectomy Assessment and Plan - Plan - GI bleed/Hematemesis patient to continue supportive care with IV fluids and PPIs, status post EGD found LA Class A Esophagitis, erythematous gastritis in gastric antrum, recommended to follow biopsy, anti reflux regimen, PPIs, discussed with Doctor Flaco does not consider Colonoscopy his mother wants to know why and at this time GI specialist talking with relatives. Colonoscopy performed found Edematous Mucosa on the ileocecal valve area, sigmoid colon with diffuse circumferential colitis, small internal hemorrhoids, biopsies taken. Status post Laparoscopic Cholecystectomy, okay to discharge from GI specialist standpoint, and by General Surgery. -Due to elevated LFTs PARDEEP negative, AMA negative, ASMA positive titer 1:20, Hepatitis panel negative, family history positive for autoimmune Hepatitis Planned for Liver biopsy today, has Hepatomegaly and Hepatic steatosis, as per GI specialist to continue PPIs, Zosyn, Status post Laparoscopic Cholecystectomy. -abdominal pain with cholelithiasis/ possible cholecystitis continue with IV antibiotics and pain control-as per General Surgery for Cholecystectomy later today. -history of Mononucleosis ID specialist followed no further management okay for surgery and signed off the case. DVT prophylaxis with SCDs. Code Status: Full code. Discussed Condition With: Patient, Mother and Nurse Miss Cunningham. Discharge Planning: Discharge home now.
--- NOTE | 2018-07-22 10:35 | P.PNGI ---
Subjective Interval history: Patient sitting up in chair mom at bedside. Patient states he tolerated regular breakfast meal this morning without any reported nausea or vomiting. Mild abdominal tenderness on palpation during exam. No BM yet this a.m., patient states positive flatus. <ChintanCynthia - Last Filed: 07/22/18 11:58> Physical Exam Vital signs: Vital Signs 07/21/18 11:20 07/21/18 15:27 07/21/18 15:30 Temperature 98.3 F 98.6 F Pulse Rate 86 109 H 105 H Respiratory Rate 18 16 19 Blood Pressure 117/56 L 135/72 129/75 Pulse Oximetry 99 95 07/21/18 15:45 07/21/18 16:00 07/21/18 16:15 Temperature 98.4 F Pulse Rate 110 H 97 H 94 H Respiratory Rate 23 16 21 Blood Pressure 123/66 131/72 120/68 Pulse Oximetry 99 93 L 97 07/21/18 16:56 07/21/18 20:00 07/22/18 08:00 Temperature 98.0 F 99.1 F 98.1 F Pulse Rate 89 110 H 86 Respiratory Rate 18 16 19 Blood Pressure 133/62 116/64 104/50 L Pulse Oximetry 94 L 98 99 Intake & Output 07/21/18 07/22/18 07/22/18 18:59 06:59 18:59 Intake Total 700 / 700 200 / 200 150 / 150 Balance 700 / 700 200 / 200 150 / 150 Intake: IV 700 / 700 200 / 200 150 / 150 NS Inj 1,000 ML @ 125 mls/hr IV 500 / 500 .CONT .Q8H [facility] Rx#:[id number] Ofirmev Inj 1,000 mg In 100 ml 100 / 100 100 / 100 100 / 100 @ 400 mls/hr IV.SIG Q6H [facility] Rx# :[id number] Zosyn 3.375 GM Premix 50 ML @ 100 / 100 100 / 100 50 / 50 100 mls/hr IV.SIG Q6H ADELINA Rx#: [id number] Other: # Voids 2 Date of Last Bowel Movement 07/20/18 07/20/18 # Bowel Movements 0 - Constitutional no acute distress - Routine HEENT Exam Head: Present: normocephalic - Routine Respiratory Exam Present: CTA bilaterally. Absent: accessory muscle use - Routine Cardiovascular Exam Present: RRR - Routine Abdominal Exam Present: soft, normoactive bowel sounds, tenderness. Absent: distended, guarding, firm Comments: Tenderness on palpation. Patient status post laparoscopic cholecystectomy. Steri-Strips dry and intact with no signs or symptoms of infection present. - Routine Extremities Exam Present: full ROM. Absent: cyanosis, clubbing, edema - Routine Skin Exam Present: dry, warm, normal turgor - Detailed Neurological Exam: Coma Scale Eye Opening: Spontaneous Verbal Response: Oriented Motor Response: Obey commands [place] Coma Scale Total: 15 - Routine Psychiatric Exam Present: normal affect, cooperative <Woodson,Cynthia - Last Filed: 07/22/18 11:58> Vital signs: Vital Signs 07/21/18 15:27 07/21/18 15:30 07/21/18 15:45 Temperature 98.6 F Pulse Rate 109 H 105 H 110 H Respiratory Rate 16 19 23 Blood Pressure 135/72 129/75 123/66 Pulse Oximetry 99 95 99 07/21/18 16:00 07/21/18 16:15 07/21/18 16:56 Temperature 98.4 F 98.0 F Pulse Rate 97 H 94 H 89 Respiratory Rate 16 21 18 Blood Pressure 131/72 120/68 133/62 Pulse Oximetry 93 L 97 94 L 07/21/18 20:00 07/22/18 08:00 Temperature 99.1 F 98.1 F Pulse Rate 110 H 86 Respiratory Rate 16 19 Blood Pressure 116/64 104/50 L Pulse Oximetry 98 99 Intake & Output 07/21/18 07/22/18 07/22/18 18:59 06:59 18:59 Intake Total 700 / 700 200 / 200 300 / 300 Balance 700 / 700 200 / 200 300 / 300 Intake: IV 700 / 700 200 / 200 300 / 300 NS Inj 1,000 ML @ 125 mls/hr IV 500 / 500 .CONT .Q8H ADELINA Rx#:[id number] Ofirmev Inj 1,000 mg In 100 ml 100 / 100 100 / 100 200 / 200 @ 400 mls/hr IV.SIG Q6H [facility] Rx# :[id number] Zosyn 3.375 GM Premix 50 ML @ 100 / 100 100 / 100 100 / 100 100 mls/hr IV.SIG Q6H ADELINA Rx#: [id number] Other: # Voids 2 Date of Last Bowel Movement 07/20/18 07/20/18 # Bowel Movements 0 <Aby Sam - Last Filed: 07/22/18 15:17> Results - Labs CBC & Chem 7: 07/19/18 03:55 07/19/18 03:55 Laboratory Results - last 24 hr 07/18/18 21:35 Ceruloplasmin 23 IgA 162 Anti-Smooth Muscle Ab Negative Tiss Transglutamin IgG ND - Procedures EGD Colonoscopy Laparoscopic Cholecystectomy <Cynthia Woodson - Last Filed: 07/22/18 11:58> - Labs CBC & Chem 7: 07/19/18 03:55 07/19/18 03:55 Laboratory Results - last 24 hr 07/18/18 21:35 Ceruloplasmin 23 Anti-Smooth Muscle Ab Negative <Aby Sam - Last Filed: 07/22/18 15:17> Assessment and Plan - Plan Assessment: - Hematochezia, present on admission Pt reports 30 lb unintentional weight loss since Jun 30, has been sick with nausea, vomiting, abdominal pain, fever, chills- multiple admission at in [place] over the past month Unknown history of UC or Crohns, his father was adopted Colonoscopy (07/20) Medium sized abnormal mucosa was found at the ileocecal valve; The mucosa was edematous and congested; biopsy was performed using cold forceps. Medium sized circumferential diffuse colitis was found in the sigmoid colon and rectum; The mucosa was congested, edematous and erythematous; multiple biopsies of the area were performed using cold forceps. Internal and external hemorrhoids. - Hematemesis, present on admission EGD (07/19) Class A esophagitis S/P biopsy. Erythematous gastritis in the gastric antrum, biopsy. Normal duodenal mucosa in the bulb and second portion of the duodenum. Hiatal hernia. Biopsy ( antrum) without significant histopathologic abnormality (GE) moderate to severe acute and chronic inflammatory changes consistent with reflux negative for acute intestinal metaplasia and dysplasia - Elevated LFTs- found during previous admission for [place] [facility] PARDEEP-negative AMA- negative ASMA- positive titer 1:20 hepatitis panel negative Family history significant for maternal grandmother with cirrhosis secondary to autoimmune hepatitis. Pt is planned for liver biopsy today. CT abdomen and pelvis W IV contrast (07/18) Hepatomegaly and hepatic steatosis. - Cholelithiasis - US gallbladder- cholelithiasis- gallbladder wall thickening and pericholecystic fluid noted. Negative sonographic Michelle's sign. The possibility of cholecystitis is difficult to exclude. Leukocytosis present on admission. Pt currently on Zosyn. 07/22/18-patient sitting up in chair today denies nausea vomiting. Ambulated in noe this am. Reports abdominal tenderness with palpation. Tolerated regular diet well ,no BM but positive flatus per patient. Colonoscopy biopsy findings discussed with patient and parent. Findings as follows --> ILEOCECAL VALVE, BIOPSY: COLONIC MUCOSA WITH ACUTE INFLAMMATION OF CRYPT EPITHELIUM. DESCENDING COLON, BIOPSY: COLONIC MUCOSA WITH FOCAL BENIGN LYMPHOID AGGREGATES. SIGMOID COLON, BIOPSY: COLONIC MUCOSA WITH FOCAL ACUTE INFLAMMATION OF CRYPT EPITHELIUM AND BENIGN LYMPHOID AGGREGATES. RECTUM, BIOPSY: COLONIC MUCOSA WITH ACUTE INFLAMMATION OF CRYPT EPITHELIUM. The colonic biopsies have acute inflammation of crypt epithelium. This is non- specific but may be seen with inflammatory bowel disease, ischemia, in infectious conditions, and in acute self-limited colitis. There are no changes to suggest chronic inflammatory bowel disease. Immunology pending, hepatitis panel nonreactive. Patient post cholecystectomy on 07/21/2018-currently on Zosyn IV. Gallbladder and liver pathology pending. Plan: Regular diet as tolerated IV antibiotics Pain medications and anti-emetics as needed per attending Awaiting gallbladder and liver biopsy results Ok to DC home from GI standpoint with Follow-up in 1 week . This patient has been seen by myself and Dr. Sam and this note is written on his behalf <Cynthia Woodson - Last Filed: 07/22/18 11:58> - Plan Seen and examined with [employer], doing better post cholecystectomy. Colon biopsies non specific. Can dc home with gi fu 1 week. Thank you <Aby Sam - Last Filed: 07/22/18 15:17>
--- NOTE | 2018-07-22 14:35 | P.DS ---
Date of admission: 07/18/18 16:14 Primary care physician: UNKNOWN Attending physician on discharge: Rich Phillips Anticipated date of discharge: 07/22/18 Brief History from admission: patient is a 23 y/o male with no significant past medical history-other than recent admission to the hospital because of mononucleosis and tonsillitis- presented to ER with abdominal pain and GI bleed. his mother said that he was admitted to the hospital twice within the past three weeks. they were told that he might've had autoimmune hepatitis and was scheduled for liver biopsy. he was also found to have gallstone for which he was seen by a surgeon and was supposed to have cholecystectomy. his mother said that he wasn't feeling fine when he left the hospital. he's been having on and off abdominal pain for the past two-three weeks however it started to get worse yesterday.he started to have bloody emesis last night. there's no report of fever or chills at home. he denies any GI bleed in the past and never had endoscopy. DS: Medications - Discharge Medications Prescriptions: hydrocodone-acetaminophen 1 tab PO Q4H PRN #18 tab PRN Reason: acute post op pain exception DS: Summary Hospital Course: This is a pleasant 23 y/o male who had recent admission due to mononucleosis and tonsillitis- presented to ER with abdominal pain and GI bleed. his mother said that he was admitted to the hospital twice within the past three weeks. they were told that he might've had autoimmune hepatitis and was scheduled for liver biopsy. he was also found to have gallstone for which he was seen by a surgeon and was supposed to have cholecystectomy. had Hematemesis status post EGD found LA Class A Esophagitis, erythematous gastritis in gastric antrum, recommended to follow biopsy, anti reflux regimen, PPIs, discussed with Doctor Flaco does not consider Colonoscopy his mother wants to know why and at this time GI specialist talking with relatives. Probable Cholecystectomy as per General surgery. 07/20: Seen in his bedroom in the presence of his Mother, she wanted to know about H pylori he had already an EGD and biopsies taken. at this time status post Colonoscopy Edematous Mucosa on the ileocecal valve area, sigmoid colon with diffuse circumferential colitis, small internal hemorrhoids, biopsies taken. 07/21: Stable in his bedroom, no complaint no nausea, vomit or diarrhea, had Colonoscopy yesterday, due to elevated LFTs PARDEEP negative, AMA negative, ASMA positive titer 1:20, Hepatitis panel negative, family history positive for autoimmune Hepatitis Planned for Liver biopsy today, has Hepatomegaly and Hepatic steatosis, as per GI specialist to continue PPIs, Zosyn, awaiting for Laparoscopic Cholecystectomy later today. 07/22: Seen in his bedroom in the presence of his mother Okay to discharge from GI specialist standpoint and General Surgery and follow as outpatient with specialists as scheduled, also by PCP, no nausea, vomit or diarrhea. Results - Labs CBC & Chem 7: 07/19/18 03:55 07/19/18 03:55 Laboratory Results - last 24 hr 07/18/18 21:35 Ceruloplasmin 23 IgA 162 Anti-Smooth Muscle Ab Negative Tiss Transglutamin IgG ND Assessment and Plan - Plan - GI bleed/Hematemesis patient to continue supportive care with IV fluids and PPIs, status post EGD found LA Class A Esophagitis, erythematous gastritis in gastric antrum, recommended to follow biopsy, anti reflux regimen, PPIs, discussed with Doctor Flaco does not consider Colonoscopy his mother wants to know why and at this time GI specialist talking with relatives. Colonoscopy performed found Edematous Mucosa on the ileocecal valve area, sigmoid colon with diffuse circumferential colitis, small internal hemorrhoids, biopsies taken. Status post Laparoscopic Cholecystectomy, okay to discharge from GI specialist standpoint, and by General Surgery. -Due to elevated LFTs PARDEEP negative, AMA negative, ASMA positive titer 1:20, Hepatitis panel negative, family history positive for autoimmune Hepatitis Planned for Liver biopsy today, has Hepatomegaly and Hepatic steatosis, as per GI specialist to continue PPIs, Zosyn, Status post Laparoscopic Cholecystectomy. -abdominal pain with cholelithiasis/ possible cholecystitis continue with IV antibiotics and pain control-as per General Surgery for Cholecystectomy later today. -history of Mononucleosis ID specialist followed no further management okay for surgery and signed off the case. DVT prophylaxis with SCDs. Code Status: Full code. Discussed Condition With: Patient, Mother and Nurse Miss Cunningham. Discharge Planning: Discharge home now. - Time Spent with Patient Total time spent providing and/or coordinating discharge services: Less than 30 minutes - Quality: VTE Deep Vein Thrombosis/Pulmonary Embolism Present on Admission: No Exam Vital signs: Vital Signs 07/21/18 15:27 07/21/18 15:30 07/21/18 15:45 Temperature 98.6 F Pulse Rate 109 H 105 H 110 H Respiratory Rate 16 19 23 Blood Pressure 135/72 129/75 123/66 Pulse Oximetry 99 95 99 07/21/18 16:00 07/21/18 16:15 07/21/18 16:56 Temperature 98.4 F 98.0 F Pulse Rate 97 H 94 H 89 Respiratory Rate 16 21 18 Blood Pressure 131/72 120/68 133/62 Pulse Oximetry 93 L 97 94 L 07/21/18 20:00 07/22/18 08:00 Temperature 99.1 F 98.1 F Pulse Rate 110 H 86 Respiratory Rate 16 19 Blood Pressure 116/64 104/50 L Pulse Oximetry 98 99 Intake & Output 07/21/18 07/22/18 07/22/18 18:59 06:59 18:59 Intake Total 700 / 700 200 / 200 300 / 300 Balance 700 / 700 200 / 200 300 / 300 Intake: IV 700 / 700 200 / 200 300 / 300 NS Inj 1,000 ML @ 125 mls/hr IV 500 / 500 .CONT .Q8H ADELINA Rx#:[id number] Ofirmev Inj 1,000 mg In 100 ml 100 / 100 100 / 100 200 / 200 @ 400 mls/hr IV.SIG Q6H ADELINA Rx# :[id number] Zosyn 3.375 GM Premix 50 ML @ 100 / 100 100 / 100 100 / 100 100 mls/hr IV.SIG Q6H ADELINA Rx#: [id number] Other: # Voids 2 Date of Last Bowel Movement 07/20/18 07/20/18 # Bowel Movements 0 Narrative: GENERAL: This is a well-nourished, well-developed patient, in no apparent distress. CARDIOVASCULAR: Regular rate and rhythm without murmurs, gallops, or rubs. RESPIRATORY: Clear to auscultation. Breath sounds equal bilaterally. No wheezes , rales, or rhonchi. GASTROINTESTINAL: Abdomen soft, Mild tenderness. clean surgical wounds. MUSCULOSKELETAL: Extremities without clubbing, cyanosis, or edema. NEURO: Alert & Oriented x4 to person, place, time, situation. Moves all ext x4 Results Procedures completed during hospitalization: EGD Colonoscopy Laparoscopic Cholecystectomy Completed studies during hospitalization: Pending at discharge 07/19/18 13:53 Surgical [PTH] Routine Pending studies at discharge: Pending at discharge 07/21/18 09:17 Surgical [PTH] Routine Labs on day of discharge: Labs from last 24 hours 07/18/18 21:35 Ceruloplasmin 23 Anti-Smooth Muscle Ab Negative Discharge Plan - Discharge Disposition Patient Disposition: 01 Discharge Home - Discharge Condition Condition: Good - Discharge Order Discharge Orders: Discharge Order (Routine); Ordered 07/22/18 Ordered By: Rich Phillips - Discharge Details Anticipated Discharge Date: 07/22/18 Discharge Comment: follow up with PCP in three days - Physicians Team Primary Care Provider: UNKNOWN, Attending Provider: Rich Phillips Other Providers: Austin Sales MD ; Noam Tavera MD ; Nacho Camacho MD ; Hussein Castro MD - Rxs /Orders / Referrals /Forms Prescriptions: New hydrocodone-acetaminophen 5-325 mg Tablet 1 tab PO Q4H PRN (Reason: acute post op pain exception ) Qty: 18 RF: 0 No Action No Known Home Medications Referrals: Nacho Camacho MD [Physician] - See Instructions (Appt set for July 29 at 10:10AM) UNKNOWN, [Primary Care Provider] - See Instructions - Discharge Instructions Patient Printed Instructions: Helicobacter Pylori (GEN), Laparoscopic Cholecystectomy (DC), Ulcerative Colitis (GEN), Infectious Colitis (GEN)
== END 2018-07-22 15:36 | disposition home or self-care (01) ==
LOC: NEDDLT 09:52 → N07 14:42
PROVIDERS: ADMIT Internal Medicine; ATTEND Internal Medicine
PROC: PANENDO (2018-07-19 09:55)
PROC: COLONOS (2018-07-20 09:31)